=== PATIENT | female | born 1945 | race Caucasian/White ===

== ENCOUNTER → 2018-08-10 09:25 | Outpatient (CLI) | payer MEDICARE, OTHER, SELFPAY ==
[2018-08-10 10:13] LABS: Add Manual Diff / Slide Review NO; Basophils Percent Auto 0.9 % (0-2); Eosinophils Percent Auto 4.5 % (2-4); Hematocrit 37.7 % (36-46); Hemoglobin 12.6 g/dL (12.0-16.0); Lymphocytes Percent Auto 26.4 % (25-40); Mean Corpuscular HGB Conc 33.3 % (30-36); Mean Corpuscular Hemoglobin 29.8 PG (26-34); Mean Corpuscular Volume 89.5 fL (80-100); Monocytes Percent Auto 6.6 % (3-14); Neutrophils Absolute Auto 3800 /uL (3000-5900); Neutrophils Percent Auto 61.6 % (50-75); Platelet Count 206 X10^3/uL (150-400); Red Blood Cell Count 4.21 X10^6/uL (4.0-5.2); Red Cell Distribution Width 13.3 % (11.6-14.8); White Blood Cell Count 6.1 X10^3/uL (4.5-11.0)
[2018-08-10 10:38] LABS: Alanine Aminotransferase 26 IU/L (9-52); Albumin 3.9 g/dL (3.5-5.0); Albumin Globulin Ratio 1.6 (1.0-2.8); Alkaline Phosphatase 73 U/L (38-126); Aspartate Aminotransferase 25 IU/L (14-36); Bilirubin Total 0.6 mg/dL (0.2-1.3); Blood Urea Nitrogen 14 mg/dL (7-17); Calcium 9.2 mg/dL (8.4-10.2); Carbon Dioxide 32 mmol/L (22-32); Chloride 103 mmol/L (98-107); Estimated Glomerular Filt Rate > 60.0 mL/min (>60); Globulin 2.5 g/dL (1.7-4.1); Glucose 100 mg/dL (80-110); HEMOLYSIS < 15 (0-50); Potassium 4.2 mmol/L (3.4-5.1); Sodium 144 mmol/L (137-145); Total Protein 6.4 g/dL (6.3-8.2)
[2018-08-10 10:48] LABS: Hemoglobin A1C% w Est Avg Glu 5.5 % (4.0-6.0)
[2018-08-10 10:56] LABS: Vitamin D 25 Hydroxy (D3) 40.8 ng/mL (30.0-100.0)
== END ==
PROVIDERS: Visit Provider Registered Nurse
DX: Z13.1 Encounter for screening for diabetes mellitus (principal); E78.5 Hyperlipidemia, unspecified; I48.92 Unspecified atrial flutter; M81.0 Age-related osteoporosis without current pathological fracture
CPT/HCPCS: 36415; 80053; 82306; 83036; 85025

== ENCOUNTER → 2018-08-11 08:11 | Outpatient (CLI) | payer MEDICARE, OTHER, SELFPAY ==
[2018-08-11 09:38] LABS: Cholesterol 120 mg/dL (140-199); HDL Cholesterol 62 mg/dL (40-60); LDL Cholesterol Calculated 40 mg/dL (<100); Triglycerides 88 mg/dL (35-150)
== END ==
PROVIDERS: Visit Provider Registered Nurse
DX: E78.5 Hyperlipidemia, unspecified (principal); Z00.00 Encounter for general adult medical examination without abnormal findings
CPT/HCPCS: 36415; 80061

== ENCOUNTER → 2018-08-19 13:20 | Outpatient (CLI) | payer MEDICARE, OTHER, SELFPAY ==
--- NOTE | 2018-08-19 13:21 | DI.RAD.S_ITS ---
This blank DEXA report has been sent in error by the PACS system. The correct and complete report will be forthcoming in 1-2 days. Thank you for your patience and understanding. Dictated by: Anushka Mason MD, PhD on 08/19/2018 at 15:16 Approved by: Anushka Mason MD, PhD on 08/19/2018 at 15:16
== END ==
PROVIDERS: Visit Provider Registered Nurse
DX: M81.0 Age-related osteoporosis without current pathological fracture (principal); Z78.0 Asymptomatic menopausal state
CPT/HCPCS: 77080

== ENCOUNTER → 2018-09-08 11:19 | Outpatient (CLI) | payer MEDICARE, OTHER, SELFPAY ==
--- NOTE | 2018-09-08 | DI.MG.S_ITS ---
BILATERAL DIGITAL SCREENING MAMMOGRAM 3D/2D WITH CAD: 09/08/2018 CLINICAL: Routine screening. Comparison is made to exams dated: 08/11/2017 mammogram, 08/04/2016 mammogram, and 07/27/2015 mammogram - [facility]. The tissue of both breasts is heterogeneously dense. This may lower the sensitivity of mammography. Current study was also evaluated with a Computer Aided Detection (CAD) system. There are mole markers on both breasts. No significant masses, calcifications, or other findings are seen in either breast. There has been no significant interval change. IMPRESSION: NEGATIVE There is no mammographic evidence of malignancy. A 1 year screening mammogram is recommended. This exam was interpreted at Station ID: [id number]. NOTE: For mammograms, a report in lay terms will be sent to the patient. Approximately 15% of breast malignancies will not be visualized mammographically. In the management of a palpable breast mass, a negative mammogram must not discourage biopsy of a clinically suspicious lesion. Electronically Signed By: Bobby higgisn/vee:09/08/2018 22:15:39 letter sent: Normal Exam ACR BI-RADS Category 1: Negative [id number]
== END ==
PROVIDERS: Visit Provider Registered Nurse
DX: Z12.31 Encounter for screening mammogram for malignant neoplasm of breast (principal)
CPT/HCPCS: 77063; 77067

== ENCOUNTER → 2018-09-09 08:36 | Outpatient (CLI) | payer MEDICARE, OTHER, SELFPAY ==
[2018-09-09 10:27] LABS: Alanine Aminotransferase 27 IU/L (9-52); Albumin 4.1 g/dL (3.5-5.0); Albumin Globulin Ratio 1.4 (1.0-2.8); Alkaline Phosphatase 76 U/L (38-126); Aspartate Aminotransferase 27 IU/L (14-36); BUN Creatinine Ratio 21.3 (6-22); Bilirubin Total 0.6 mg/dL (0.2-1.3); Blood Urea Nitrogen 17 mg/dL (7-17); Calcium 9.5 mg/dL (8.4-10.2); Carbon Dioxide 35 mmol/L (22-32); Chloride 98 mmol/L (98-107); Estimated Glomerular Filt Rate > 60.0 mL/min (>60); Globulin 2.9 g/dL (1.7-4.1); Glucose 90 mg/dL (80-110); HEMOLYSIS < 15 (0-50); Potassium 3.3 mmol/L (3.4-5.1); Sodium 141 mmol/L (137-145)
== END ==
PROVIDERS: PCP Registered Nurse; Visit Provider Registered Nurse
DX: I10 Essential (primary) hypertension (principal)
CPT/HCPCS: 36415; 80053

== ENCOUNTER → 2019-05-03 12:41 | Outpatient (CLI) | payer MEDICARE, OTHER, SELFPAY ==
--- NOTE | 2019-05-03 12:42 | DI.RAD.S_ITS ---
PROCEDURE: FL BARIUM SWALLOW W SPEECH INDICATIONS: DYSPHAGIA TECHNIQUE: Examination was conducted in conjunction with speech pathology per standard protocol. In the lateral projection, filming was performed of the patient swallowing. AP projection filming may also be performed with patient swallowing. COMPARISON: None. FINDINGS: Function: The oral preparatory phase appears normal, with proper containment. The subsequent oral propulsive phase, pharyngeal phase, and esophageal phase of swallowing also appear normal with all proffered substances. No laryngotracheal penetration or aspiration. No pathologic vallecular pooling. Morphology: No cricopharyngeal bar is identified. No cervical esophageal webs. No Zenker's diverticulum. No strictures. IMPRESSION: No evidence of tracheal aspiration. Dictated by: Harpreet Dietz M.D. on 05/03/2019 at 14:29 Approved by: Harpreet Dietz M.D. on 05/03/2019 at 14:29
--- NOTE | 2019-05-04 17:22 | ST.SWALLOW ---
Care Team Visit Care Team Role Provider Type Jacobo Day MD Attending Provider Physician Primary Care Provider Specialty: Internal Medicine Address: [address] [place] [address], [id number] Email: Modified Barium Swallow Study CAMPUS ADMINISTRATIVE ASSISTANT Modified Barium Swallow Study Start: 05/04/19 16:42 Freq: Status: Active Protocol: Document 05/03/19 16:42 MICH (Rec: 05/04/19 17:22 MICH [id number]) Modified Barium Swallow Study Total Time Visit Start Time 13:30 Visit Stop Time 14:10 Total Visit Minutes [address] Jacobo Day Reason for Referral Dysphagia Setting Setting Outpatient Care Patient Information Identification Type Name ID Card Patient History 73-yr-old female who stated that over the last ~10 yrs, she has experienced intermittent coughing with oral intake and sensation of her airway closing up at times either with or without oral intake. During these experiences she feels she is unable to breathe. Symptoms typically resolve if she can calm herself. She has never required Heimlich maneuver, nor has she ever passed out from lack of oxygen during such episodes. She attended [facility] swallow screening with Speech Pathology 2 wks ago and was recommended MBSS for swallow evaluation. Subjective Observations The pt arrived on time and provided case history. Patient Positioning Position View Lateral Imaging Lateral View Textures Administered Trials Presented Thin Liquid via Spoon Thin Liquid via Cup [place] Liquid via Spoon [place] Liquid via Cup Honey Liquid via Spoon Dysphagia Blenderized Textures Regular Textures Oral Phase Source: MBSIMP (TM) (C) Bolus Specific Scoring Grid Lip Closure No Impairment (WNL) Tongue Control During Bolus Hold WFL Bolus Prep/Mastication WFL Bolus Transport/Lingual Motion WFL A/P Lingual Propulsion Delay No Oral Residue Minimal Impairment Residue Clearing WFL Nasal Regurgitation No Additional Oral Phase Observations Oral Peripheral Exam: Symmetrical features all WNL of strength, coordination and ROM. Pt has complete natural dentition in good condition and wears full set of braces. Soft palate elevates upon phonation. Upon palpation, hyolaryngeal elevation WNL, mildly reduced anterior excursion. Pt is able to perform volitional swallow and strong cough. Oral Phase: Lingual rocking observed x1 with a/p propulsion of large liquid bolus. Mild oral residue observed that mostly clears with subsequent swallow. Otherwise WNL. Pharyngeal Phase Source: MBSIMP (TM) (C) Bolus Specific Scoring Grid Delayed Initiation of Pharyngeal Swallow No Soft Palate Elevation No Impairment (WNL) Tongue Base Strength/Range of Motion Minimal Impairment Residue Along the Tongue Base Yes Clearance of Residue Along Tongue Base WFL Laryngeal Elevation No Impairment (WNL) Anterior Hyoid Movement Mild Impairment Epiglottic Range of Motion WFL Vallecular Residue Yes Clearance of Vallecular Residue Mild Impairment Laryngeal Vestibular Closure No Impairment (WNL) Pharyngeal Stripping Wave Mild Impairment Posterior Pharyngeal Wall Residue Yes Clearance of Posterior Pharyngeal Wall Minimal Impairment Residue Upper Esophageal Sphincter Opening No Impairment (WNL) Residue in the Pyriform Sinuses Yes Clearance of Residue in the Pyriform Minimal Impairment Sinuses Pharyngoesophageal Backflow Observed No Additional Pharyngeal Phase Observations Proximal esophagus observed only. No backflow or other abnormality observed. A/P View Clinical Impressions Dysphagia Type Mild pharyngeal dysphagia Findings The pt presents with mild impairment of pharyngeal musculature resulting in reduced stripping wave and anterior hyolaryngeal excursion with subsequent mild pharyngeal residue, particularly at level of valeculae. Residue mostly but not entirely clears with subsequent swallows. No penetration or aspiration was observed with all trials. Given findings of study and pt 's descriptions of closing sensation at airway, as well as relief of symptoms with relaxation, suspect the pt is experiencing laryngospasm vs dysphagia. Education was provided regarding MBS results and this suggestion. The pt stated that she had wondered if perhaps she had a spasm. A brief course of outpatient therapy may be helpful for ongoing assessment of swallow, education, investigation of potential triggers of spasm, and training of laryngospasm management, although the pt is already following typical recommendations (i.e., relaxation techniques) to manage symptoms. Rehabilitation Potential Good Patient Appropriate for Therapy Yes Recommendations Diet Liquids Order Thin Diet Order Regular Medication Recommendation As Tolerated Aspiration Precautions Recommended Precautions Upright at 90 Degrees Additional Precautions Use relaxation techniques if sensing abnormal airway closure Treatment Plan Therapy Recommendations Outpatient Speech Therapy Compensatory Strategies Recommendations Sitting Upright (90 deg) Small Bites and Sips Short Term Goals Suggested goals: 1. The pt will perform deep breathing relaxation technique to minimize frequency and duration of laryngospasm. 2. The pt will perform exercises to increase strength /coordination/ROM of pharyngeal and laryngeal musculature to improve swallow function. Mcc Goals 1. The pt will experience reduced frequency and duration of laryngospasm, as measured by pt report and clinical judgement. 2. The pt will tolerate regular diet texture and thin liquids without overt s/sx of aspiration or laryngospasm. Placement Recommendation After Discharge Home Outpatient Therapy
== END ==
PROVIDERS: PCP Student in an Organized Health Care Education/Training Program; Visit Provider Student in an Organized Health Care Education/Training Program
DX: R13.10 Dysphagia, unspecified (principal)
CPT/HCPCS: 74230; 92611

== ENCOUNTER 2019-05-25 12:10 | Emergency (ER) | payer MEDICARE, OTHER, SELFPAY ==
[2019-05-25] VITALS (7 sets, daily range): BP systolic 128–146; BP diastolic 56–71; PULSE 75–91; RESP 13–22; TEMP 36.7; O2SAT 96–99; BMI 28.1
--- NOTE | 2019-05-25 12:18 | DI.RAD.S_ITS ---
PROCEDURE: XR CHEST 1V INDICATIONS: chest pain TECHNIQUE: One view of the chest was acquired. COMPARISON: [facility], , CHEST 1 VIEW, 03/24/2016, 9:36. FINDINGS: Surgical changes and devices: None. Lungs and pleura: Lungs are clear. No pleural effusions or pneumothorax. Mediastinum: Mediastinal contours appear normal. Heart size is normal. Bones and chest wall: No suspicious bony lesions. Overlying soft tissues appear unremarkable. IMPRESSION: No acute process. Dictated by: Darleen Miller M.D. on 05/25/2019 at 12:48 Approved by: Darleen Miller M.D. on 05/25/2019 at 12:48
[2019-05-25 12:33] LABS: Add Manual Diff / Slide Review NO; Basophils Absolute Auto 100 /uL (0-100); Basophils Percent Auto 0.8 % (0-2); Eosinophils Absolute Auto 200 /uL (0-450); Eosinophils Percent Auto 2.4 % (2-4); Hematocrit 39.1 % (36-46); Hemoglobin 13.3 g/dL (12.0-16.0); Lymphocytes Absolute Auto 2000 /uL (1100-4500); Lymphocytes Percent Auto 28.2 % (25-40); Mean Corpuscular Hemoglobin 30.3 PG (26-34); Monocytes Absolute Auto 600 /uL (0-900); Monocytes Percent Auto 8.1 % (3-14); Neutrophils Absolute Auto 4300 /uL (1500-7000); Neutrophils Percent Auto 60.5 % (50-75); Platelet Count 201 X10^3/uL (150-400); Red Cell Distribution Width 13.4 % (11.6-14.8); White Blood Cell Count 7.2 X10^3/uL (4.5-11.0)
[2019-05-25 12:37] LABS: Prothrombin Time 10.9 SECONDS (10.1-12.7)
[2019-05-25 12:39] LABS: PTT Partial Thromboplastin Tim 29 SECONDS (26.4-36.2)
[2019-05-25 12:42] LABS: Alanine Aminotransferase 16 IU/L (9-52); Albumin 4.3 g/dL (3.5-5.0); Albumin Globulin Ratio 1.5 (1.0-2.8); Alkaline Phosphatase 84 U/L (38-126); Aspartate Aminotransferase 24 IU/L (14-36); BUN Creatinine Ratio 15.7 (6-22); Bilirubin Total 0.7 mg/dL (0.2-1.3); Blood Urea Nitrogen 11 mg/dL (7-17); Calcium 9.2 mg/dL (8.4-10.2); Carbon Dioxide 31 mmol/L (22-32); Chloride 101 mmol/L (98-107); Creatine Kinase 95 U/L (30-135); Estimated Glomerular Filt Rate > 60.0 mL/min (>60); Globulin 2.8 g/dL (1.7-4.1); Glucose 123 mg/dL (80-110); HEMOLYSIS < 15 (0-50); Lipase 68 U/L (23-300); Magnesium 1.7 mg/dL (1.6-2.3); Potassium 2.8 mmol/L (3.4-5.1); Sodium 142 mmol/L (137-145); Total Protein 7.1 g/dL (6.3-8.2)
[2019-05-25 12:56] LABS: Troponin I 0.023 ng/mL (0.01-0.034)
[2019-05-25] MEDS: POTASSIUM CHLORIDE 20 MEQ/15 ML UDC 40 MEQ PO (14:00)
--- NOTE | 2019-05-25 14:20 | ED_ITS ---
HPI - Syncope General Chief Complaint: Syncope Stated Complaint: Low bp,almost passed out Time Seen by Provider: 05/25/19 13:21 Source: patient Mode of arrival: ambulatory Limitations: no limitations History of Present Illness HPI narrative: This is a 73-year-old female comes to the emergency department with complaint of near-syncope. Patient states she was doing her normal activities today. She states that it felt like a whole-body curtain was coming down from the had all over her body. She said at the table, she put her head down. She got tunnel vision but did not lose consciousness or tone. Patient states that she checked her blood pressure, she could not feel pulses so she walked in to the other room and the recliner and sat down. She then felt that her heart rate was fast. She denies headache, she denies any other vision changes. The tunnel vision resolved and she has not had any further. She did feel like her eyes were dry this morning. She denies any chest pain, no shortness of breath. No abdominal pain. No nausea, no vomiting no diarrhea. She does feel constipated. She states that she typically urinates every couple hours and has had been on her normal schedule she has been eating and drinking. She does have a cardiac history with atrial flutter. She has had an ablation. As well as catheterization when she had this done. This was several years ago. She has no cardiac stents. She has a known left bundle branch block. She does not take any blood thinners. She does take diltiazem, chlorthalidone as well as atorvastatin and alendronate. No tobacco, no alcohol or illicit. Her primary care is Dr. Day, her superintendent circus is Dr. Phillips Related Data Home Medications Medication Instructions Recorded Confirmed multivitamin 1 tab PO DAILY #0 12/12/11 05/25/19 cholecalciferol (vitamin D3) 1,000 unit PO DAILY #0 tab 07/22/16 05/25/19 [Vitamin D3] Disabled Parking Permit 1 dev MISCELLANEOUS DIRECTED 05/25/19 05/25/19 atorvastatin [Lipitor] 10 mg PO BEDTIME 05/25/19 05/25/19 diltiazem HCl [Cartia XT] 240 mg PO DAILY 05/25/19 05/25/19 Previous Rx's Medication Instructions Recorded alendronate 70 mg tablet 70 mg PO QWEEK #4 tab 04/24/19 chlorthalidone 25 mg tablet 25 mg PO DAILY #30 tab 03/09/19 Allergies Allergy/AdvReac Type Severity Reaction Status Date / Time aspartame [ASPARTAME] Allergy Mild ITCHING Verified 05/25/19 12:17 AND REDNESS saccharin [SACCHARIN] Allergy Mild ITCHING Verified 05/25/19 12:17 AND REDNESS Sulfa (Sulfonamide Allergy Mild ITCHING Verified 05/25/19 12:17 Antibiotics) AND REDNESS [SULFA (SULFONAMIDE ANTIBIOTICS)] lisinopril AdvReac sinus Verified 05/25/19 12:17 problems Review of Systems Review of Systems ROS Unobtainable: All systems reviewed & are unremarkable except as noted in HPI and below Constitutional Denies chills, Denies fever(s), Denies headache(s), Denies lethargy and Denies weakness Eyes Reports tunnel vision (resolved) ENT Ears, Nose, Mouth, and Throat: Denies vertigo, Denies dizziness, Denies headache(s), Denies nasal congestion and Denies disequilibrium Cardiovascular Denies chest pain, Denies diaphoresis, Denies syncope, Denies rapid heart rate, Denies edema, Denies irregular heart rhythm, Reports lightheadedness, Denies palpitations, Denies dyspnea, Denies dyspnea on exertion and Denies orthopnea Respiratory Denies chest congestion, Denies cough, Denies excessive phlegm production, Denies dyspnea and Denies dyspnea on exertion Gastrointestinal Gastrointestinal: Denies abdominal pain, Denies melena, Denies hematochezia, Denies change in bowel habits, Denies diarrhea, Denies nausea and Denies vomiting Genitourinary Denies hematuria, Denies urinary frequency, Denies dysuria, Denies flank pain and Denies urinary urgency Musculoskeletal Denies back pain, Denies numbness and Denies tingling Integumentary/Breasts Denies rash Neurologic Denies confusion, Denies vertigo, Denies dizziness, Denies syncope, Denies headache(s), Denies focal weakness, Denies numbness, Denies tingling, Denies disequilibrium and Denies weakness Psychiatric Denies confusion Endocrine Denies palpitations [facility] Medical History Atrial flutter (Chronic 03/2016) Depression (Chronic) Dyslexia (Chronic 194) Foot pain (Chronic 2004) Osteoarthritis (Chronic) Osteopenia (Chronic) Osteoporosis (Chronic 2012) PTSD (post-traumatic stress disorder) (Chronic) Vertigo (Chronic) Chicken pox (Resolved ~1949) Fibroids (Resolved ~1979) Frozen shoulder (Resolved 1978) Hayfever (Resolved ~1959) History of heavy periods (Resolved ~1979) Infertility (Resolved 1977) Measles (Resolved ~1949) Mumps (Resolved ~1949) Painful menstrual periods (Resolved ~1958) Recurrent sinusitis (Resolved ~1969) Vulvar intraepithelial neoplasia (ERIC) (Resolved 2007) Surgical History Anesthesia (Resolved) History of cardiac radiofrequency ablation (RFA) (Resolved 2015) History of gynecologic surgery (Resolved ~1979) History of shoulder surgery (Resolved 1978) History of sinus surgery (Resolved ~1979) Status post cholecystectomy (Resolved 1993) Status post hysterectomy (Resolved 1988) Status post surgical removal of neoplasm of skin (Resolved 2007) Family History Father Heart disease Hypolipidemia Grandfather Stroke Grandmother Heart disease Mother Heart block Heart disease Grandfather Cancer Grandmother Stroke Sister Age: 67 Uterine cancer Sister No problems noted. Sister No problems noted. Social History (System 09/08/18 @ 16:12 by Swapnil Del Cid) Smoking Status: Never smoker Family History Father Heart disease Hypolipidemia Grandfather Stroke Grandmother Heart disease Mother Heart block Heart disease Grandfather Cancer Grandmother Stroke Sister Age: 67 Uterine cancer Sister No problems noted. Sister No problems noted. Social History Smoking Status: Never smoker Exam Narrative Exam Narrative: GEN: well nourished, well appearing female, alert and oriented x 3, patient appears to be in no acute distress. HEENT: Atraumatic, pupils are equal round reactive to light, extraocular movements are intact, nares are clear, moist mucous membranes. HEART: Regular rate and rhythm without murmur, clicks, rubs. LUNGS:Lungs clear to auscultation, no wheezes, rales, crackles, chest moves symmetrically ABD:bowel sounds normal, soft, non-tender, no guarding, rebound, rigidity, no masses noted, no hepatosplenomegaly :No CVA tenderness MSCL: Non-tender, no muscle atrophy, muscles strength 5/5 upper and lower extremities, full range of motion, normal gait NEURO:CN 2-12 intact, sensation normal SKIN: No rashes. No petechiae. Initial Vital Signs Initial Vital Signs: Vital Signs Temperature 98.1 F 05/25/19 12:13 Pulse Rate 88 05/25/19 12:13 Respiratory Rate 18 05/25/19 12:13 Blood Pressure 139/71 05/25/19 12:13 Pulse Oximetry 99 05/25/19 12:13 Scores GCS [place] coma scale eye opening: Spontaneous Aric coma scale verbal response: Orientated Aric coma scale motor response: Obey commands [place] coma scale total score: 15 Course Orders Ordered: ED Orders 05/25/19 12:18 XR chest 1V Stat EKG-12 Lead Stat 05/25/19 12:25 Complete Blood Count AUTO DIFF Stat Comprehensive Metabolic Panel Stat Lipase Stat Magnesium Stat Partial Thromboplastin Time Stat Prothrombin Time INR Stat Troponin & CK Cardiac Panel Stat Discontinued Medications Potassium Chloride (Potassium Chloride) 40 meq PO NOW ONE Stop: 05/25/19 13:49 Last Admin: 05/25/19 14:00 Dose: 40 meq Vital Signs - 8 hr 05/25/19 12:13 05/25/19 12:45 05/25/19 12:51 Temperature 98.1 F Pulse Rate 88 78 Pulse Rate [Orthostatic Lying] 85 Pulse Rate [Orthostatic Sitting] 86 Pulse Rate [Orthostatic Standing] 91 H Respiratory Rate 18 22 Blood Pressure 139/71 Blood Pressure [Left Arm] 138/70 Blood Pressure [Orthostatic Lying] 145/64 H Blood Pressure [Orthostatic Sitting] 146/60 H Blood Pressure [Orthostatic Standing] 138/70 Pulse Oximetry 99 96 05/25/19 13:30 05/25/19 14:00 05/25/19 14:30 Temperature Pulse Rate 76 79 75 Pulse Rate [Orthostatic Lying] Pulse Rate [Orthostatic Sitting] Pulse Rate [Orthostatic Standing] Respiratory Rate 19 20 18 Blood Pressure Blood Pressure [Left Arm] 143/62 H 138/71 146/61 H Blood Pressure [Orthostatic Lying] Blood Pressure [Orthostatic Sitting] Blood Pressure [Orthostatic Standing] Pulse Oximetry 96 98 98 05/25/19 15:12 Temperature Pulse Rate 79 Pulse Rate [Orthostatic Lying] Pulse Rate [Orthostatic Sitting] Pulse Rate [Orthostatic Standing] Respiratory Rate 13 Blood Pressure Blood Pressure [Left Arm] 128/56 L Blood Pressure [Orthostatic Lying] Blood Pressure [Orthostatic Sitting] Blood Pressure [Orthostatic Standing] Pulse Oximetry 97 MDM - Syncope Lab Data Attestation: I reviewed the patient's lab results. Result diagrams: 05/25/19 12:25 05/25/19 12:25 Lab Results 05/25/19 05/25/19 05/25/19 Range/Units 12:25 12:25 12:25 WBC 7.2 (4.5-11.0) X10^3/uL RBC 4.40 (4.0-5.2) X10^6/uL Hgb 13.3 (12.0-16.0) g/dL Hct 39.1 (36-46) % MCV 89.0 (80-100) fL MCH 30.3 (26-34) PG MCHC 34.0 (30-36) % RDW 13.4 (11.6-14.8) % Plt Count 201 (150-400) X10^3/uL Neut % (Auto) 60.5 (50-75) % Lymph % (Auto) 28.2 (25-40) % Craig % (Auto) 8.1 (3-14) % Eos % (Auto) 2.4 (2-4) % Baso % (Auto) 0.8 (0-2) % Neut # (Auto) 4300 (3293-8037) /uL Lymph # (Auto) 2000 (4616-1391) /uL Craig # (Auto) 600 (0-900) /uL Eos # (Auto) 200 (0-450) /uL Baso # (Auto) 100 (0-100) /uL PT 10.9 (10.1-12.7) SECONDS INR 1.0 (0.9-1.3) APTT 29 (26.4-36.2) SECONDS Sodium 142 (137-145) mmol/L Potassium 2.8 L (3.4-5.1) mmol/L Chloride 101 (98-107) mmol/L Carbon Dioxide 31 (22-32) mmol/L BUN 11 (7-17) mg/dL Creatinine 0.70 (0.52-1.04) mg/dL Estimated GFR > 60.0 (>60) mL/min BUN/Creatinine Ratio 15.7 (6-22) Glucose 123 H (80-110) mg/dL Calcium 9.2 (8.4-10.2) mg/dL Magnesium 1.7 (1.6-2.3) mg/dL Total Bilirubin 0.7 (0.2-1.3) mg/dL AST 24 (14-36) IU/L ALT 16 (9-52) IU/L Alkaline Phosphatase 84 (38-126) U/L Total Creatine Kinase 95 (30-135) U/L CK-MB (CK-2) TNP CK-MB (CK-2) Rel Index TNP Troponin I 0.023 (0.01-0.034) ng/mL Total Protein 7.1 (6.3-8.2) g/dL Albumin 4.3 (3.5-5.0) g/dL Globulin 2.8 (1.7-4.1) g/dL Albumin/Globulin Ratio 1.5 (1.0-2.8) Lipase 68 (23-300) U/L Urine Dip Bedside Urine Glucose Negative Bedside Urine Bilirubin - Negative Bedside Urine Ketone - Negative Urine Specific [place] 1.010 Bedside Urine Occult Blood - Negative Bedside Urine pH 7.0 Bedside Urine Protein - Negative Bedside Urine Urobilinogen - Negative Bedside Urine Nitrite - Negative Bedside Urine Leukocytes + 70 Esterase Imaging Data Chest x-ray: Radiologist's impression: [address] [address] XRay Report Signed Patient: Fariha Beatty JMR#: [id number] : 6Acct:[id number] Age/Sex: 73 / FDate of Service: 05/25/19 Loc: ED Accession Number: [id number] Procedure: XR chest 1V Ordering Provider: Zari Iqbal D.O. PROCEDURE: XR CHEST 1V INDICATIONS: chest pain TECHNIQUE: One view of the chest was acquired. COMPARISON: [facility], CHEST 1 VIEW, 03/24/2016, 9:36. FINDINGS: Surgical changes and devices: None. Lungs and pleura: Lungs are clear. No pleural effusions or pneumothorax. Mediastinum: Mediastinal contours appear normal. Heart size is normal. Bones and chest wall: No suspicious bony lesions. Overlying soft tissues appear unremarkable. IMPRESSION: No acute process. Dictated by: Darleen Miller M.D. on 05/25/2019 at 12:48 Approved by: Darleen Miller M.D. on 05/25/2019 at 12:48 ECG Data Attestation: I personally reviewed and interpreted this ECG as follows: Prior ECG tracings: available for review Interpretation: Sinus rhythm occasional PVC, left bundle branch block. Rate 85 P are 165 QRS sick 169 and QTC of 477. No acute ST changes. Patient EKG appears similar to . [facility] Narrative Medical decision making narrative: Patient is a movement did not have a true syncopal episode. She did have what sounds like a near syncopal episode. No acute cardiac changes on EKG, troponin is normal at with a normal chest x-ray. Patient does appear to be hypokalemic. She states she has a banana regularly. She did used to take potassium daily but they changed her medications. She was given a dose of oral potassium here she was asked to have her potassium rechecked tomorrow either here in the ER or as outpatient and was given a lab slip. The patient I discussed she had a couple extra bananas at. If she has any recurrent or worsening symptoms she should return. She is feeling much better at this time. Patient is on chlorthalidone which could cause her hypokalemia. We discussed if she has recurrent symptoms she may need to be on potassium regularly. Discharge Plan Departure Patient Disposition: Home Clinical Impression: Acute hypokalemia, Near syncope Discharge Date/Time: 05/25/19 15:44 Interventions: ED Discharge Assessment Last Done: 05/25/19 15:44 Instructions: DI for Hypokalemia Activity Restrictions/Additional Instructions: Follow-up tomorrow for repeat electrolytes to recheck your potassium. Continue your medication as prescribed. If your potassium continues to be low you may need a potassium supplement. Urine culture is pending, this will return in 24-48 hours if positive you should expect a phone. Return to the emergency department if you are unable to get your potassium level rechecked or having any new or worsening symptoms, weakness, recurrent syncope, lightheadedness, chest pain, shortness of breath, persistent vomiting black or bloody stools or other new or concerning symptoms. Prescriptions: No Action multivitamin Tablet 1 tab PO DAILY Qty: 0 RF: 0 cholecalciferol (vitamin D3) [Vitamin D3] 1,000 UNIT tablet 1,000 unit PO DAILY Qty: 0 RF: 0 alendronate 70 mg tablet 70 mg PO QWEEK Qty: 4 RF: 5 chlorthalidone 25 mg tablet 25 mg PO DAILY Qty: 30 RF: 5 diltiazem HCl [Cartia XT] 240 mg capsule,extended release 24hr 240 mg PO DAILY RF: 0 atorvastatin [Lipitor] 10 mg tablet 10 mg PO BEDTIME RF: 0 Disabled Parking Permit 1 dev miscellaneous DIRECTED RF: 0 Referrals: Jacobo Day MD [Primary Care Provider] -
== END 2019-05-25 15:44 | disposition home or self-care (01) ==
PROVIDERS: Emergency Provider Emergency Medicine; PCP Student in an Organized Health Care Education/Training Program
DX: E87.6 Hypokalemia (principal); R55 Syncope and collapse; I95.89 Other hypotension
CPT/HCPCS: 36591; 71045; 80053; 81003; 82550; 83690; 83735; 84484; 85025; 85610; 85730; 93005; 99283; 99285

== ENCOUNTER → 2019-05-26 09:06 | Outpatient (CLI) | payer MEDICARE, OTHER, SELFPAY ==
[2019-05-26 09:46] LABS: BUN Creatinine Ratio 15.7 (6-22); Blood Urea Nitrogen 11 mg/dL (7-17); Calcium 9.2 mg/dL (8.4-10.2); Carbon Dioxide 32 mmol/L (22-32); Chloride 100 mmol/L (98-107); Estimated Glomerular Filt Rate > 60.0 mL/min (>60); Glucose 99 mg/dL (80-110); HEMOLYSIS < 15 (0-50); Potassium 3.3 mmol/L (3.4-5.1); Sodium 141 mmol/L (137-145)
== END ==
PROVIDERS: Family Provider Student in an Organized Health Care Education/Training Program; PCP Student in an Organized Health Care Education/Training Program; Visit Provider Emergency Medicine
DX: I95.9 Hypotension, unspecified (principal)
CPT/HCPCS: 36415; 80048

== ENCOUNTER 2019-06-27 13:27 | Emergency (ER) | payer MEDICARE, OTHER, SELFPAY ==
[2019-06-27] VITALS (10 sets, daily range): BP systolic 106–142; BP diastolic 44–74; PULSE 31–41; RESP 13–20; TEMP 36.4; O2SAT 97–99
--- NOTE | 2019-06-27 13:37 | DI.RAD.S_ITS ---
PROCEDURE: XR CHEST 1V INDICATIONS: bradycardia / dizzyness TECHNIQUE: One view of the chest was acquired. COMPARISON: [facility], CR, XR CHEST 1V, 05/25/2019, 12:23. FINDINGS: Surgical changes and devices: None. Lungs and pleura: Lungs are clear. No pleural effusions or pneumothorax. Mediastinum: Mediastinal contours appear normal. Heart size is normal. Bones and chest wall: No suspicious bony lesions. Overlying soft tissues appear unremarkable. IMPRESSION: No evidence acute pulmonary process. Dictated by: Felice Nuñez M.D. on 06/27/2019 at 14:15 Approved by: Felice Nuñez M.D. on 06/27/2019 at 14:16
[2019-06-27 14:00] LABS: Add Manual Diff / Slide Review NO; Basophils Absolute Auto 100 /uL (0-100); Basophils Percent Auto 0.8 % (0-2); Eosinophils Absolute Auto 200 /uL (0-450); Eosinophils Percent Auto 2.6 % (2-4); Hematocrit 38.6 % (36-46); Lymphocytes Absolute Auto 2400 /uL (1100-4500); Lymphocytes Percent Auto 28.3 % (25-40); Mean Corpuscular HGB Conc 33.6 % (30-36); Mean Corpuscular Volume 89.2 fL (80-100); Monocytes Absolute Auto 700 /uL (0-900); Neutrophils Absolute Auto 5100 /uL (1500-7000); Neutrophils Percent Auto 60.3 % (50-75); Platelet Count 214 X10^3/uL (150-400); Red Blood Cell Count 4.33 X10^6/uL (4.0-5.2); Red Cell Distribution Width 13.5 % (11.6-14.8); White Blood Cell Count 8.5 X10^3/uL (4.5-11.0)
--- NOTE | 2019-06-27 14:05 | ED_ITS ---
HPI - Dizziness General Chief Complaint: Dizziness Stated Complaint: persistant dizziness Time Seen by Provider: 06/27/19 13:37 Source: patient Mode of arrival: ambulatory Limitations: no limitations History of Present Illness HPI Narrative: Patient comes emergency department complaining of dizziness today. She states that she felt lightheaded this morning after having an episode of racing heart. Patient has a history of paroxysmal atrial fibrillation. Patient states that the palpitations ceased fairly quickly, but that she has had a sense of dizziness/lightheadedness ever since. Patient denies chest pain. She states she feels slightly short of breath especially when walking. She states her heart rate is normally in the 80s, but she has had occasional episodes of bradycardia in the past, she states, mainly when her potassium has dropped low. Patient states that she has been followed by Dr. Phillips for her atrial fibrillation. Patient denies any nausea or vomiting. Patient denies any recent medication dose changes. She is on diltiazem for her atrial fibrillation. Patient denies taking any beta blockers. No syncopal episodes, and patient states she has not felt near syncopal. No other com plaints at this time. Related Data Home Medications Medication Instructions Recorded Confirmed multivitamin 1 tab PO DAILY #0 12/12/11 06/27/19 Disabled Parking Permit 1 dev MISCELLANEOUS DIRECTED 05/25/19 06/27/19 atorvastatin [Lipitor] 10 mg PO BEDTIME 05/25/19 06/27/19 diltiazem HCl [Cartia XT] 240 mg PO DAILY 05/25/19 06/27/19 Previous Rx's Medication Instructions Recorded alendronate 70 mg tablet 70 mg PO QWEEK #4 tab 03/09/19 chlorthalidone 25 mg tablet 25 mg PO DAILY #30 tab 03/09/19 potassium chloride ER 20 mEq 20 meq PO DAILY #90 tab 05/27/19 tablet,extended release Allergies Allergy/AdvReac Type Severity Reaction Status Date / Time aspartame [ASPARTAME] Allergy Mild ITCHING Verified 06/27/19 13:39 AND REDNESS saccharin [SACCHARIN] Allergy Mild ITCHING Verified 06/27/19 13:39 AND REDNESS Sulfa (Sulfonamide Allergy Mild ITCHING Verified 06/27/19 13:39 Antibiotics) AND REDNESS [SULFA (SULFONAMIDE ANTIBIOTICS)] lisinopril AdvReac sinus Verified 06/27/19 13:39 problems Review of Systems Constitutional Denies chills, Denies fever(s), Denies lethargy and Denies weakness Eyes Denies change in vision, Denies eye discharge, Denies irritation and Denies loss of vision ENT Ears, Nose, Mouth, and Throat: Denies change in voice, Reports dizziness, Denies neck pain and Denies sore throat Cardiovascular Denies chest pain, Denies irregular heart rhythm, Reports lightheadedness, Denies palpitations, Denies dyspnea, Denies dyspnea on exertion and Denies orthopnea Respiratory Denies cough, Denies dyspnea, Denies dyspnea on exertion and Denies wheezing Gastrointestinal Gastrointestinal: Denies abdominal pain, Denies change in bowel habits, Denies diarrhea, Denies nausea and Denies vomiting Genitourinary Denies hematuria, Denies flank pain, Denies urinary incontinence and Denies urinary urgency Musculoskeletal Denies neck pain Integumentary/Breasts Denies pruritus, Denies erythema, Denies rash and Denies wounds Neurologic Denies confusion, Reports dizziness, Denies loss of vision and Denies weakness Psychiatric Denies anxiety, Denies confusion, Denies depression, Denies homicidal ideation and Denies suicidal ideation Endocrine Denies palpitations Hematologic/Lymphatic Denies easy bruising Allergic/Immunologic Denies wheezing [facility] Medical History Atrial flutter (Chronic 03/2016) Depression (Chronic) Dyslexia (Chronic 1945) Foot pain (Chronic 2004) Osteoarthritis (Chronic) Osteopenia (Chronic) Osteoporosis (Chronic 2012) PTSD (post-traumatic stress disorder) (Chronic) Vertigo (Chronic) Chicken pox (Resolved ~1949) Fibroids (Resolved ~1979) Frozen shoulder (Resolved 1978) Hayfever (Resolved ~1959) History of heavy periods (Resolved ~1979) Infertility (Resolved 1977) Measles (Resolved ~1949) Mumps (Resolved ~1949) Painful menstrual periods (Resolved ~1958) Recurrent sinusitis (Resolved ~1969) Vulvar intraepithelial neoplasia (ERIC) (Resolved 2007) Surgical History Anesthesia (Resolved) History of cardiac radiofrequency ablation (RFA) (Resolved 2015) History of gynecologic surgery (Resolved ~1979) History of shoulder surgery (Resolved 1978) History of sinus surgery (Resolved ~1979) Status post cholecystectomy (Resolved 1993) Status post hysterectomy (Resolved 1988) Status post surgical removal of neoplasm of skin (Resolved 2007) Family History Father Heart disease Hypolipidemia Grandfather Stroke Grandmother Heart disease Mother Heart block Heart disease Grandfather Cancer Grandmother Stroke Sister Age: 67 Uterine cancer Sister No problems noted. Sister No problems noted. Social History Smoking Status: Never smoker Family History Father Heart disease Hypolipidemia Grandfather Stroke Grandmother Heart disease Mother Heart block Heart disease Grandfather Cancer Grandmother Stroke Sister Age: 67 Uterine cancer Sister No problems noted. Sister No problems noted. Social History Smoking Status: Never smoker Exam Initial Vital Signs Initial Vital Signs: Vital Signs Temperature 97.6 F 06/27/19 13:33 Pulse Rate 36 L 06/27/19 13:33 Respiratory Rate 18 06/27/19 13:33 Blood Pressure 142/68 H 06/27/19 13:33 Pulse Oximetry 98 06/27/19 13:33 Const General: cooperative and well developed Nutritional Appearance: well nourished Orientation: alert, awake, oriented x3 and not confused HENSC Head: normocephalic and atraumatic Ears: external ears normal and TM's normal bilaterally Nose: external nose normal and No nasal discharge Face and sinus: sinuses nontender, face symmetric, no sinus tenderness and No dry mucous membranes Mouth: oral mucosae normal and moist mucous membranes Teeth and gingiva: dentition normal Throat: tonsils normal and uvula midline Eyes General: appearance normal, both eyes and all related structures Eyelids: eyelids normal Conjunctivae: conjunctivae normal Sclera: sclerae normal Pupils: PERRL EOM: EOM intact bilaterally Neck Neck: normal visual inspection, trachea midline, No lymphadenopathy, No midline deformity and No JVD Lymphatic: No lymphedema Chest Chest: normal inspection of the chest Resp Effort & Inspection: normal respiratory effort, able to speak in complete sentences, no respiratory distress and no use of accessory muscles Auscultation: clear to auscultation bilaterally, no rales, no rhonchi and no wheezes Cardio Rate: bradycardic Rhythm: regular rhythm and abnormal rhythm irregularly irregular Heart Sounds: no click, no gallops, no murmurs and no rubs Pulses: normal peripheral pulses GI Inspection: non-distended Palpation: soft, no hepatosplenomegaly, No guarding, No pulsatile mass and No tender Auscultation: normal bowel sounds Back/Spine/Pelvis Back: No CVA tenderness Cervical Spine: cervical ROM normal and No pain with cervical ROM Thoracic/Lumbar Spine: thoracic and lumbar spine normal to inspection Skin General: no rashes or lesions noted, No jaundice and No petechiae Neuro General: alert, oriented x3, gait normal and no focal motor deficits Speech: speech normal Extrem General: full ROM, no clubbing, cyanosis or edema, no pedal edema and no calf tenderness Psych Appearance: well kempt Mental Status: mental status grossly normal Attitude: cooperative Thought Content: normal and suicidality Judgment: judgment good Course Course Narrative: Twelve lead EKG was performed, and the patient placed on the cardiac cath rn. Upon realizing the monitor reading, I did find that the P- waves did not seem to be associating with the QRS complexes, and I was concerned for 3rd degree AV block. Pacer pads were placed on the patient, and she was moved to a critical room. Rhythm strip was obtained, which did appear to be consistent with 3rd degree AV block. As such, I did page Cardiology in [facility] to discuss the case and Dr. Mehran Duke agree that the patient should be transferred to [facility] for observation and further evaluation. I discussed the case with Dr. Howard, who is on-call for hospitalist service, and she agreed to accept the patient transfer to [facility]. Discussed the plan with the patient, who is also agreeable. The patient remained normotensive throughout her stay in the emergency department. Her heart rate ranged between the upper 20s and upper 30s, with a brief period in the 40s to 50s. Patient's rhythm strips intermittently showed what appeared to be a Mobitz 2 block and a third-degree block. Patient's course was otherwise uneventful in the emergency department. Her labs were unremarkable. Patient was without incident for the remainder of her ED stay until transfer. Orders Ordered: ED Orders 06/27/19 13:37 XR chest 1V Stat EKG-12 Lead Routine 06/27/19 13:53 Complete Blood Count AUTO DIFF Stat Comprehensive Metabolic Panel Stat Prothrombin Time INR Stat Troponin & CK Cardiac Panel Stat 06/27/19 16:55 Urine Culture Stat Urine Microscopic Stat Vital Signs - 8 hr 06/27/19 13:33 06/27/19 14:09 06/27/19 14:32 Temperature 97.6 F Pulse Rate 36 L 40 L 38 L Respiratory Rate 18 18 13 Blood Pressure 142/68 H Blood Pressure [Right Arm] 106/47 L 118/44 L Pulse Oximetry 98 98 98 06/27/19 15:00 06/27/19 15:30 06/27/19 16:00 Temperature Pulse Rate 38 L 41 L 40 L Respiratory Rate 18 20 15 Blood Pressure Blood Pressure [Right Arm] 114/74 132/57 L 128/62 Pulse Oximetry 97 97 99 06/27/19 16:30 06/27/19 17:00 06/27/19 17:30 Temperature Pulse Rate 31 L 34 L 35 L Respiratory Rate 15 15 14 Blood Pressure Blood Pressure [Right Arm] 127/53 L 142/65 H 113/58 L Pulse Oximetry 99 99 98 06/27/19 18:02 Temperature Pulse Rate 31 L Respiratory Rate 16 Blood Pressure Blood Pressure [Right Arm] 127/48 L Pulse Oximetry 98 MDM - Dizziness Medical Records Attestation: I reviewed the patient's medical records. Lab Data Attestation: I reviewed the patient's lab results. Result diagrams: 06/27/19 13:53 06/27/19 13:53 Lab Results 06/27/19 06/27/19 06/27/19 Range/Units 13:53 13:53 13:53 WBC 8.5 (4.5-11.0) X10^3/uL RBC 4.33 (4.0-5.2) X10^6/uL Hgb 13.0 (12.0-16.0) g/dL Hct 38.6 (36-46) % MCV 89.2 (80-100) fL MCH 30.0 (26-34) PG MCHC 33.6 (30-36) % RDW 13.5 (11.6-14.8) % Plt Count 214 (150-400) X10^3/uL Neut % (Auto) 60.3 (50-75) % Lymph % (Auto) 28.3 (25-40) % Childress % (Auto) 8.0 (3-14) % Eos % (Auto) 2.6 (2-4) % Baso % (Auto) 0.8 (0-2) % Neut # (Auto) 5100 (4275-4322) /uL Lymph # (Auto) 2400 (7153-2254) /uL Childress # (Auto) 700 (0-900) /uL Eos # (Auto) 200 (0-450) /uL Baso # (Auto) 100 (0-100) /uL PT 11.0 (10.1-12.7) SECONDS INR 1.0 (0.9-1.3) Sodium 140 (137-145) mmol/L Potassium 3.4 (3.4-5.1) mmol/L Chloride 102 (98-107) mmol/L Carbon Dioxide 26 (22-32) mmol/L BUN 19 H (7-17) mg/dL Creatinine 0.80 (0.52-1.04) mg/dL Estimated GFR > 60.0 (>60) mL/min BUN/Creatinine Ratio 23.8 H (6-22) Glucose 125 H (80-110) mg/dL Calcium 9.4 (8.4-10.2) mg/dL Total Bilirubin 0.6 (0.2-1.3) mg/dL AST 24 (14-36) IU/L ALT 20 (9-52) IU/L Alkaline Phosphatase 78 (38-126) U/L Total Creatine Kinase (30-135) U/L CK-MB (CK-2) CK-MB (CK-2) Rel Index Troponin I (0.01-0.034) ng/mL Total Protein 7.0 (6.3-8.2) g/dL Albumin 4.2 (3.5-5.0) g/dL Globulin 2.8 (1.7-4.1) g/dL Albumin/Globulin Ratio 1.5 (1.0-2.8) Urine RBC (0-5/HPF) Urine WBC (0-5/HPF) Ur Squamous Epith Cells (0-5/HPF) Urine Bacteria (None) Ur Culture Indicated? 06/27/19 06/27/19 Range/Units 13:53 16:55 WBC (4.5-11.0) X10^3/uL RBC (4.0-5.2) X10^6/uL Hgb (12.0-16.0) g/dL Hct (36-46) % MCV (80-100) fL MCH (26-34) PG MCHC (30-36) % RDW (11.6-14.8) % Plt Count (150-400) X10^3/uL Neut % (Auto) (50-75) % Lymph % (Auto) (25-40) % Childress % (Auto) (3-14) % Eos % (Auto) (2-4) % Baso % (Auto) (0-2) % Neut # (Auto) (3636-5133) /uL Lymph # (Auto) (3341-4537) /uL Childress # (Auto) (0-900) /uL Eos # (Auto) (0-450) /uL Baso # (Auto) (0-100) /uL PT (10.1-12.7) SECONDS INR (0.9-1.3) Sodium (137-145) mmol/L Potassium (3.4-5.1) mmol/L Chloride (98-107) mmol/L Carbon Dioxide (22-32) mmol/L BUN (7-17) mg/dL Creatinine (0.52-1.04) mg/dL Estimated GFR (>60) mL/min BUN/Creatinine Ratio (6-22) Glucose (80-110) mg/dL Calcium (8.4-10.2) mg/dL Total Bilirubin (0.2-1.3) mg/dL AST (14-36) IU/L ALT (9-52) IU/L Alkaline Phosphatase (38-126) U/L Total Creatine Kinase 72 (30-135) U/L CK-MB (CK-2) TNP CK-MB (CK-2) Rel Index TNP Troponin I 0.020 (0.01-0.034) ng/mL Total Protein (6.3-8.2) g/dL Albumin (3.5-5.0) g/dL Globulin (1.7-4.1) g/dL Albumin/Globulin Ratio (1.0-2.8) Urine RBC None seen (0-5/HPF) Urine WBC 1-5/hpf (0-5/HPF) Ur Squamous Epith Cells None seen (0-5/HPF) Urine Bacteria None seen (None) Ur Culture Indicated? Specimen cultured Urine Dip Bedside Urine Glucose Negative Bedside Urine Bilirubin - Negative Bedside Urine Ketone - Negative Bedside Urine Occult Blood - Negative Bedside Urine Protein - Negative Bedside Urine Urobilinogen - Negative Bedside Urine Nitrite - Negative Bedside Urine Leukocytes +++ 500 Esterase Imaging Data Chest x-ray: Attestation: I personally reviewed and interpreted this imaging study as follows: Radiologist's impression: PROCEDURE: XR CHEST 1V INDICATIONS: bradycardia / dizzyness TECHNIQUE: One view of the chest was acquired. COMPARISON: [facility], , XR CHEST 1V, 05/25/2019, 12:23. FINDINGS: Surgical changes and devices: None. Lungs and pleura: Lungs are clear. No pleural effusions or pneumothorax. Mediastinum: Mediastinal contours appear normal. Heart size is normal. Bones and chest wall: No suspicious bony lesions. Overlying soft tissues appear unremarkable. IMPRESSION: No evidence acute pulmonary process. Dictated by: Felice Nuñez M.D. on 06/27/2019 at 14:15 Approved by: Felice Nuñez M.D. on 06/27/2019 at 14:16 ECG Data Attestation: I personally reviewed and interpreted this ECG as follows: (See below) Interpretation: Twelve lead EKG performed June 27, 2019, at 1:37 p.m., as follows: A mildly irregular ventricular rhythm with a rate of 38 beats per minute P waves present without consistent correlation with QRS complexes with a 2-1 ratio QRS duration 150 millisecond QTC interval [address] T wave changes Normal axis Interpretation: Second-degree heart block, type 2, with 2-1 correlation; left bundle-branch block; no signs of acute ischemia; abnormal EKG as interpreted by ED MD. Critical Care Time Critical Care Time: Yes Total Critical Care Time: 60 Attestation: Critical care time was necessary, due to high probability of imminent decline and , due to advanced heart block and AV dissociation. Critical care time is exclusive of separately billable procedures. Critical care time included: Interviewing and examining the patient, ordering and reviewing laboratory studies, ordering and reviewing imaging studies, ordering and evaluating cardiac tracings, evaluating cardiac output, evaluating oxygen saturation, discussion with consultants, discussion with family, re-examining the patient, arranging transfer and documentation. Discharge Plan Departure Patient Disposition: [facility] Clinical Impression: Heart block AV third degree, Symptomatic bradycardia Discharge Date/Time: 06/27/19 18:39 Interventions: ED Discharge Assessment Last Done: 06/27/19 18:39 Prescriptions: No Action multivitamin Tablet 1 tab PO DAILY Qty: 0 RF: 0 alendronate 70 mg tablet 70 mg PO QWEEK Qty: 4 RF: 5 chlorthalidone 25 mg tablet 25 mg PO DAILY Qty: 30 RF: 5 potassium chloride 20 mEq tablet extended release 20 meq PO DAILY Qty: 90 RF: 1 diltiazem HCl [Cartia XT] 240 mg capsule,extended release 24hr 240 mg PO DAILY RF: 0 atorvastatin [Lipitor] 10 mg tablet 10 mg PO BEDTIME RF: 0 Disabled Parking Permit 1 dev miscellaneous DIRECTED RF: 0 Referrals: Jacobo Day MD [Primary Care Provider] -
[2019-06-27 14:13] LABS: Creatine Kinase 72 U/L (30-135)
[2019-06-27 14:15] LABS: Alanine Aminotransferase 20 IU/L (9-52); Albumin 4.2 g/dL (3.5-5.0); Albumin Globulin Ratio 1.5 (1.0-2.8); Alkaline Phosphatase 78 U/L (38-126); Aspartate Aminotransferase 24 IU/L (14-36); BUN Creatinine Ratio 23.8 (6-22); Bilirubin Total 0.6 mg/dL (0.2-1.3); Blood Urea Nitrogen 19 mg/dL (7-17); Calcium 9.4 mg/dL (8.4-10.2); Carbon Dioxide 26 mmol/L (22-32); Chloride 102 mmol/L (98-107); Estimated Glomerular Filt Rate > 60.0 mL/min (>60); Globulin 2.8 g/dL (1.7-4.1); Glucose 125 mg/dL (80-110); HEMOLYSIS 16 (0-50); Potassium 3.4 mmol/L (3.4-5.1); Sodium 140 mmol/L (137-145)
--- NOTE | 2019-06-27 14:19 | PC.NURSE ---
Pt notes that if she brings her head forward, chin to her chest sx's get a little better and conversely if she tips her head back dizziness gets worse. She also said her heartrate is usually in the 80's. She denies any pain and is alert, oriented and able to get her needs met.
--- NOTE | 2019-06-27 14:33 | PC.NURSE ---
Pt alert, denies sx's, Dr. Covarrubias aware of heart rate at 28. not sustained for longer than a few seconds. Pt is hooked up to pacer pads if we need it.
[2019-06-27 17:00] LABS: Bacteria Urine None Seen; RBC Urine None Seen (0-5/HPF)
[2019-06-27 17:18] LABS: Culture Indicated Urine Specimen Cultured; Squamous Epithelial Cell Urine None Seen (0-5/HPF); WBC Urine 1-5/HPF (0-5/HPF)
--- NOTE | 2019-06-27 18:40 | PC.NURSE ---
Report given to aj Puentes RN for transport and then to Yuly at [facility] in the Progressive Care Unit.
== END 2019-06-27 18:39 | disposition short-term general hospital (02) ==
PROVIDERS: Emergency Provider Emergency Medicine; Family Provider Student in an Organized Health Care Education/Training Program; PCP Student in an Organized Health Care Education/Training Program
DX: I44.2 Atrioventricular block, complete (principal); R00.1 Bradycardia, unspecified
CPT/HCPCS: 36591; 71045; 80053; 81003; 81015; 82550; 84484; 85025; 85610; 87086; 93005; 93010; 99285; 99291

== ENCOUNTER → 2019-08-11 07:52 | Outpatient (CLI) | payer MEDICARE, OTHER, SELFPAY ==
[2019-08-11 09:28] LABS: BUN Creatinine Ratio 15.7 (6-22); Blood Urea Nitrogen 11 mg/dL (7-17); Calcium 9.1 mg/dL (8.4-10.2); Carbon Dioxide 32 mmol/L (22-32); Chloride 101 mmol/L (98-107); Estimated Glomerular Filt Rate > 60.0 mL/min (>60); Glucose 90 mg/dL (80-110); HEMOLYSIS < 15 (0-50); Potassium 3.4 mmol/L (3.4-5.1); Sodium 142 mmol/L (137-145)
== END ==
PROVIDERS: Family Provider Student in an Organized Health Care Education/Training Program; PCP Student in an Organized Health Care Education/Training Program; Visit Provider Internal Medicine Cardiovascular Disease
DX: Z95.0 Presence of cardiac pacemaker (principal)
CPT/HCPCS: 36415; 80048

== ENCOUNTER → 2019-08-26 08:01 | Outpatient (CLI) | payer MEDICARE, OTHER, SELFPAY ==
[2019-08-26 10:32] LABS: Blood Urea Nitrogen 12 mg/dL (7-17); Calcium 9.4 mg/dL (8.4-10.2); Carbon Dioxide 30 mmol/L (22-32); Chloride 105 mmol/L (98-107); Estimated Glomerular Filt Rate > 60.0 mL/min (>60); Glucose 87 mg/dL (80-110); HEMOLYSIS < 15 (0-50); Potassium 4.1 mmol/L (3.4-5.1); Sodium 142 mmol/L (137-145)
== END ==
PROVIDERS: Family Provider Student in an Organized Health Care Education/Training Program; PCP Student in an Organized Health Care Education/Training Program; Visit Provider Internal Medicine Cardiovascular Disease
DX: Z95.0 Presence of cardiac pacemaker (principal)
CPT/HCPCS: 36415; 80048

== ENCOUNTER → 2020-01-05 16:46 | Outpatient (CLI) | payer MEDICARE, OTHER, SELFPAY ==
--- NOTE | 2020-01-05 16:50 | DI.RAD.S_ITS ---
PROCEDURE: XR HIP W PEL IF DONE RT 2V INDICATIONS: Right hip pain TECHNIQUE: 2 views of the hip were acquired. COMPARISON: None. FINDINGS: Bones: No fractures or dislocations. No suspicious bony lesions. The visualized pelvic ring appears intact. Mild right hip and sacroiliac joint degeneration. Soft tissues: No suspicious soft tissue calcifications or masses. IMPRESSION: Mild degenerative joint disease. No fracture or dislocation. Dictated by: Hans Trevizo M.D. on 01/05/2020 at 17:33 Approved by: Hans Trevizo M.D. on 01/05/2020 at 17:34
== END ==
PROVIDERS: Family Provider Student in an Organized Health Care Education/Training Program; PCP Student in an Organized Health Care Education/Training Program; Referring Provider Student in an Organized Health Care Education/Training Program; Visit Provider Student in an Organized Health Care Education/Training Program
DX: M25.551 Pain in right hip (principal); M16.11 Unilateral primary osteoarthritis, right hip; M47.898 Other spondylosis, sacral and sacrococcygeal region; M85.80 Other specified disorders of bone density and structure, unspecified site
CPT/HCPCS: 73502

== ENCOUNTER 2020-02-07 09:45 | Outpatient (RCR) | payer MEDICARE, OTHER, SELFPAY ==
--- NOTE | 2020-01-31 15:11 | PT.OIE ---
Current Diagnoses Pain in right hip (01/31/20) Past Medical History (Last Reviewed 06/27/19 @ 14:19 by Krissy Covarrubias MD) Atrial flutter (Chronic 03/2016) Chicken pox (Resolved ~1949) Depression (Chronic) Dyslexia (Chronic 1945) Fibroids (Resolved ~1979) Foot pain (Chronic 2004) Frozen shoulder (Resolved 1978) Hayfever (Resolved ~1959) History of heavy periods (Resolved ~1979) Infertility (Resolved 1977) Measles (Resolved ~1949) Mumps (Resolved ~1949) Osteoarthritis (Chronic) Osteopenia (Chronic) Osteoporosis (Chronic 2012) Painful menstrual periods (Resolved ~1958) PTSD (post-traumatic stress disorder) (Chronic) Recurrent sinusitis (Resolved ~1969) Vertigo (Chronic) Vulvar intraepithelial neoplasia (ERIC) (Resolved 2007) Past Surgical History (Last Reviewed 06/27/19 @ 14:19 by Krissy Covarrubias MD) Anesthesia (Resolved) History of cardiac radiofrequency ablation (RFA) (Resolved 2015) History of gynecologic surgery (Resolved ~1979) History of shoulder surgery (Resolved 1978) History of sinus surgery (Resolved ~1979) Status post cholecystectomy (Resolved 1993) Status post hysterectomy (Resolved 1988) Status post surgical removal of neoplasm of skin (Resolved 2007) Visit Care Team Role Provider Type Ashly Hightower DO Family Provider Physician Specialty: Family Practice Address: [address] [place] [address] Email: [email or web address] Jacobo Day MD Attending Provider Physician Primary Care Provider Referring Provider Specialty: Internal Medicine Address: [address] [place] [address] Email: [email or web address] Physical Therapy Initial Evaluation PT-OP-A Visit Information Start: 01/31/20 13:46 Freq: Status: Active Protocol: Document 01/31/20 13:49 MB (Rec: 01/31/20 14:36 MB [id number]) Out-Patient Physical Therapy Visit Information Visit Information Visit Type Initial Evaluation Visit Note Medicare, unlimited visits Visit Start Time 13:49 Visit Stop Time 14:30 Total Visit Minutes 41 Visit Number 1 Evaluation Information Evaluation Date 01/31/20 PT-OP-B Current Condition Start: 01/31/20 13:46 Freq: Status: Active Protocol: Document 01/31/20 13:49 MB (Rec: 01/31/20 14:36 MB [id number]) Current Condition History of Current Condition Onset Date 1 year ago Current Complaints R leg pain worse with walking and turning History of Current Condition Pt fell down the steps going backwards holding onto rail and landed on her bum and outside of right leg. She had trouble getting up. She lives alone and has a life alert. She did finally get up using steps. Stairs on left going up and she a flight of steps to basement freezer. She has two steps to get into the house and it has 2 rails. She can only reach one at a time. She uses cane in left hand. She has right knee and right hip pain. She is walking up to 1 1/2 miles. She uses heating pad and ice pack. She reports 6/10 pain at it's worse. Pain assessent grid has lateral right hip circled. She occ awakens d/t pain. She prefers sleeping on her right side and does try to sleep on her left some. She is not using pillow support. PMH: PT in the past for right ITB pain and it got better, back pain, arthritis, depression, OP, pacemaker, closed manipulation for left frozen shoulder, L BBB and ablation, history of lasix use d/t right leg swelling, right leg length discrepancy and lift. Prior Treatments and Tests X-ray of right hip: 01/05/2020 revealed mild DJD, no fx or dislocation Treatment Goals Patient/Caregiver Goals Pt wants to go to [place] this [place] and needs to be able to walk 3-5 miles a day on [place]. PT-OP-C Subjective Start: 01/31/20 13:46 Freq: Status: Active Protocol: Document 01/31/20 13:49 MB (Rec: 01/31/20 15:11 MB [id number]) OP-PT Subjective Patient Comments Patient Comments See history of current complaints Patient Questionnaires Lymphedema Life Impact Score Lymphedema Impairment 20 to 39% Impaired (Score 33- 46) PT-OP-D Balance Start: 01/31/20 13:46 Freq: Status: Active Protocol: Document 01/31/20 13:49 MB (Rec: 01/31/20 15:11 MB [id number]) Balance Tests Romberg Romberg Pt unable to get into position without UE support PT-OP-G Mobility & Gait Start: 01/31/20 13:46 Freq: Status: Active Protocol: Document 01/31/20 13:49 MB (Rec: 01/31/20 15:11 MB [id number]) OP Gait Assessment Comments Gait Comments SPC left hand with slow nadia. Pt has pelvic and knee alignment changes with increased right knee valgus. Decreased heel strike and toe off. PT-OP-J Posture/Palpation/Skin Start: 01/31/20 13:46 Freq: Status: Active Protocol: Document 01/31/20 13:49 MB (Rec: 01/31/20 15:11 MB [id number]) Posture Evaluation Comments Posture Comments Standing:pt barefoot, forward head, rounded shoulders with tragus 3 in front of AC joint , decreased thoracic kyphosis, anterior tilt pelvis, curvature of spine that may be related to known leg length discrepancy, right leg shorter than left. R shoulder lower than the left, trunk laterally shifted to the right, increased knee valgus on the right and right greater than left overpronation ankle and foot flat. L iliac crest higher than the right. Right ankle swelling greater than the left PT-OP-K Range of Motion Start: 01/31/20 13:46 Freq: Status: Active Protocol: Document 01/31/20 13:49 MB (Rec: 01/31/20 15:11 MB [id number]) Knee Goniometric Range of Motion Knee Left Knee ROM WFL No Patient Position Supine Flexion Active (degrees) 120 Extension Passive (degrees) 16 Right Knee ROM WFL No Patient Position Supine Flexion Active (degrees) 85 Extension Passive (degrees) 25 Knee ROM Limitations Knee ROM Limitations Bony Restriction,Pain,Swelling PT-OP-M Strength Start: 01/31/20 13:46 Freq: Status: Active Protocol: Document 01/31/20 13:49 MB (Rec: 01/31/20 15:11 MB [id number]) Hip Strength Hip Manual Muscle Testing Left Flexion (L2) 4 Good Extension (S1) 4 Good Right Comments NT hip flexion and abduction d /t fear of pain Knee Strength Knee Manual Muscle Testing Left Flexion (S2) 4 Good Extension (L3) 5 Normal Comments In limited ROM Right Flexion (S2) 5 Normal Extension (L3) 5 Normal Comments In limited ROM Ankle/Foot Strength Ankle and Foot Manual Muscle Testing Left Dorsiflexion (L4) 5 Normal Inversion 5 Normal Eversion (S1) 5 Normal Comments Great toe extension 5/5 Right Dorsiflexion (L4) 5 Normal Inversion 5 Normal Eversion (S1) 4 Good Comments Great toe extension 5/5 PT-OP-Q Treatments Start: 01/31/20 13:46 Freq: Status: Active Protocol: Document 01/31/20 13:49 MB (Rec: 01/31/20 15:11 MB [id number]) Therapeutic Exercises Supine Exercises Pelvic realignment exercises Comments Educated pt and added to HEP, pt performs 5 reps, 3 sec hold PT-OP-T Assessment and Plan Start: 01/31/20 13:46 Freq: Status: Active Protocol: Document 01/31/20 13:49 MB (Rec: 01/31/20 15:11 MB [id number]) Physical Therapy Assessment Rehab Potential Rehabilitation Potential Good Evaluation Complexity Number of Personal Factors/Comorbidities 0 Number of Body Systems Impaired 1-2 Clinical Presentation at Evaluation Stable Impairments Impairments Balance,Edema,Gait,Integument, Pain,Posture,ROM,Soft Tissue Mobility,Strength Goals 6 Preservative Filler Machine Operator Goal (LTG) Pt will gait train 1000 feet in 6 minutes with LRAD to improve gait distance to prepare for trip to [place] by 04/02/2020. LTG Duration 8 weeks 5 Halfway Goal (LTG) Pt will perform 5 reps sit to stand without UE support in less than 13 sec to improve functional mobility by 2019. LTG Duration 8 weeks 4 Halfway Goal (LTG) Pt will present with improved B hip flexion and abduction strength to at least 4/5 and right knee flexion to 5/5 in available range by 04/02/2020 to improve balance and gait. LTG Duration 8 weeks 3 Preservative Filler Machine Operator Goal (LTG) Pt will perform progressive HEP with I including postural, pelvic alignment, flexibility , strength and balance exercises by 04/02/2020. LTG Duration 8 weeks 2 Preservative Filler Machine Operator Goal (LTG) Pt will report a 65% improvement in right hip and knee pain to improve gait distance by 04/02/2020. LTG Duration 8 weeks 1 Halfway Goal (LTG) Pt will present with an improved LE functional index score to reflect no more than 20% impairment to progress gait distance by 04/02/2020. LTG Duration 8 weeks Assessment Summary Assessment Pt is a 74 y/o female presenting with progressive degenerative changes that are contributory to her hip and knee limitations and pain. Her right knee has increased valgus, right ankle has increased overpronation, right ankle has increased edema compared to the left. She has known leg length discrepancy, right shoulder than left, and her alignment from leg to hip to spine to shoulder is asymmetrical in standing. Passive hip ER and IR are equally limited in supine (30 deg ER and 15 deg IR) but she has posterior hip pain with passive right movement. Pt also presents with weakness and gait and balance changes. She will benefit from PT for flexibility, pelvic realignment, postural, strengthening and balance exercises. Unsure that her knee range will change in setting of likely joint changes but will attempt to improve flexibility and strength of legs. Degenerative changes are barriers to PT. She may benefit from further footwear and heel lift changes . Physical Therapy Plan Frequency and Duration Frequency of Treatment 2x/Week Duration of Treatment 8 weeks Plan of Care Start Date 01/31/20 Plan of Care End Date 04/02/20 Therapeutic Interventions Therapeutic Interventions Aquatic Therapy,Balance Training,Canalithic Repositioning,Gait Training, Home Exercise Program,Joint Mobilizations,Manual Therapy, Neuromuscular Re-education, Orthotic/Prosthetic Management ,Patient/Caregiver Education, Self-Care/Home Management,Soft Tissue Mobilization,Taping, Therapeutic Activities, Therapeutic Exercises Modalities Cold Pack/Ice Massage,Electric Stimulation,Hot Packs, Ultrasound Other Therapeutic Interventions LTT Next Visit Focus/Plan Next Note Type Treatment Note Next Visit Plan Review pelvic realignment exercises and progress HEP
--- NOTE | 2020-01-31 15:12 | PT.OPPOC ---
Physical, Occupational & Speech Therapy At [facility] Current Diagnoses Pain in right hip (01/31/20) Visit Care Team Role Provider Type Ashly Hightower DO Family Provider Physician Specialty: Family Practice Address: [address] [place] [address], [facility] [address], [place], [address] Email: [email or web address] Jacobo Day MD Attending Provider Physician Primary Care Provider Referring Provider Specialty: Internal Medicine Address: [address] [place] [address], [address], [place], [address] Email: [email or web address] Plan Of Care PT-OP-T Assessment and Plan Start: 01/31/20 13:46 Freq: Status: Active Protocol: Document 01/31/20 13:49 MB (Rec: 01/31/20 15:11 MB [id number]) Physical Therapy Assessment Rehab Potential Rehabilitation Potential Good Evaluation Complexity Number of Personal Factors/Comorbidities 0 Number of Body Systems Impaired 1-2 Clinical Presentation at Evaluation Stable Impairments Impairments Balance,Edema,Gait,Integument, Pain,Posture,ROM,Soft Tissue Mobility,Strength Goals 6 Spa Associate Goal (LTG) Pt will gait train 1000 feet in 6 minutes with LRAD to improve gait distance to prepare for trip to [place] by 04/02/2020. LTG Duration 8 weeks 5 Spa Associate Goal (LTG) Pt will perform 5 reps sit to stand without UE support in less than 13 sec to improve functional mobility by 2019. LTG Duration 8 weeks 4 Spa Associate Goal (LTG) Pt will present with improved B hip flexion and abduction strength to at least 4/5 and right knee flexion to 5/5 in available range by 04/02/2020 to improve balance and gait. LTG Duration 8 weeks 3 Skilled Nursing Goal (LTG) Pt will perform progressive HEP with I including postural, pelvic alignment, flexibility , strength and balance exercises by 04/02/2020. LTG Duration 8 weeks 2 Spa Associate Goal (LTG) Pt will report a 65% improvement in right hip and knee pain to improve gait distance by 04/02/2020. LTG Duration 8 weeks 1 Spa Associate Goal (LTG) Pt will present with an improved LE functional index score to reflect no more than 20% impairment to progress gait distance by 04/02/2020. LTG Duration 8 weeks Assessment Summary Assessment Pt is a 74 y/o female presenting with progressive degenerative changes that are contributory to her hip and knee limitations and pain. Her right knee has increased valgus, right ankle has increased overpronation, right ankle has increased edema compared to the left. She has known leg length discrepancy, right shoulder than left, and her alignment from leg to hip to spine to shoulder is asymmetrical in standing. Passive hip ER and IR are equally limited in supine (30 deg ER and 15 deg IR) but she has posterior hip pain with passive right movement. Pt also presents with weakness and gait and balance changes. She will benefit from PT for flexibility, pelvic realignment, postural, strengthening and balance exercises. Unsure that her knee range will change in setting of likely joint changes but will attempt to improve flexibility and strength of legs. Degenerative changes are barriers to PT. She may benefit from further footwear and heel lift changes . Physical Therapy Plan Frequency and Duration Frequency of Treatment 2x/Week Duration of Treatment 8 weeks Plan of Care Start Date 01/31/20 Plan of Care End Date 04/02/20 Therapeutic Interventions Therapeutic Interventions Aquatic Therapy,Balance Training,Canalithic Repositioning,Gait Training, Home Exercise Program,Joint Mobilizations,Manual Therapy, Neuromuscular Re-education, Orthotic/Prosthetic Management ,Patient/Caregiver Education, Self-Care/Home Management,Soft Tissue Mobilization,Taping, Therapeutic Activities, Therapeutic Exercises Modalities Cold Pack/Ice Massage,Electric Stimulation,Hot Packs, Ultrasound Other Therapeutic Interventions LTT Next Visit Focus/Plan Next Note Type Treatment Note Next Visit Plan Review pelvic realignment exercises and progress HEP Plan of Care Dates Plan of Care Start Date 01/31/20 Plan of Care End Date 04/02/20 Electronically Signed by: Kirstie Delgado PT 01/31/20 [id number] Please Sign and Return: I have reviewed this Plan of Care and certify that the skilled therapy services above are required to meet the patient?s needs. Physician Signature Date Printed Name and Credentials Clinical Instructor Signature Printed Name and Credentials
--- NOTE | 2020-02-02 12:25 | PT.OTN ---
Current Diagnoses Pain in right hip (02/02/20) Physical Therapy Treatment Note PT-OP-A Visit Information Start: 01/31/20 13:46 Freq: Status: Active Protocol: Document 02/02/20 11:27 MB (Rec: 02/02/20 12:15 MB [id number]) Out-Patient Physical Therapy Visit Information Visit Information Visit Type Initial Evaluation Visit Note Medicare, unlimited visits Visit Start Time 11:27 Visit Stop Time 12:05 Total Visit Minutes 38 Visit Number 2 PT-OP-B Current Condition Start: 01/31/20 13:46 Freq: Status: Active Protocol: Document 01/31/20 13:49 MB (Rec: 01/31/20 14:36 MB [id number]) Current Condition History of Current Condition Onset Date 1 year ago Current Complaints R leg pain worse with walking and turning History of Current Condition Pt fell down the steps going backwards holding onto rail and landed on her bum and outside of right leg. She had trouble getting up. She lives alone and has a life alert. She did finally get up using steps. Stairs on left going up and she a flight of steps to basement freezer. She has two steps to get into the house and it has 2 rails. She can only reach one at a time. She uses cane in left hand. She has right knee and right hip pain. She is walking up to 1 1/2 miles. She uses heating pad and ice pack. She reports 6/10 pain at it's worse. Pain assessent grid has lateral right hip circled. She occ awakens d/t pain. She prefers sleeping on her right side and does try to sleep on her left some. She is not using pillow support. PMH: PT in the past for right ITB pain and it got better, back pain, arthritis, depression, OP, pacemaker, closed manipulation for left frozen shoulder, L BBB and ablation, history of lasix use d/t right leg swelling, right leg length discrepancy and lift. Prior Treatments and Tests X-ray of right hip: 01/05/2020 revealed mild DJD, no fx or dislocation Treatment Goals Patient/Caregiver Goals Pt wants to go to [place] this [place] and needs to be able to walk 3-5 miles a day on [place]. PT-OP-C Subjective Start: 01/31/20 13:46 Freq: Status: Active Protocol: Document 02/02/20 11:27 MB (Rec: 02/02/20 12:21 MB [id number]) OP-PT Subjective Patient Comments Patient Comments Pt reports that she had a good night's sleep two nights ago but that last night was a rough night as far as B leg pain when sleeping. PT-OP-D Balance Start: 01/31/20 13:46 Freq: Status: Active Protocol: Document 01/31/20 13:49 MB (Rec: 01/31/20 15:11 MB [id number]) Balance Tests Romberg Romberg Pt unable to get into position without UE support PT-OP-G Mobility & Gait Start: 01/31/20 13:46 Freq: Status: Active Protocol: Document 01/31/20 13:49 MB (Rec: 01/31/20 15:11 MB [id number]) OP Gait Assessment Comments Gait Comments SPC left hand with slow nadia. Pt has pelvic and knee alignment changes with increased right knee valgus. Decreased heel strike and toe off. PT-OP-J Posture/Palpation/Skin Start: 01/31/20 13:46 Freq: Status: Active Protocol: Document 01/31/20 13:49 MB (Rec: 01/31/20 15:11 MB [id number]) Posture Evaluation Comments Posture Comments Standing:pt barefoot, forward head, rounded shoulders with tragus 3 in front of AC joint , decreased thoracic kyphosis, anterior tilt pelvis, curvature of spine that may be related to known leg length discrepancy, right leg shorter than left. R shoulder lower than the left, trunk laterally shifted to the right, increased knee valgus on the right and right greater than left overpronation ankle and foot flat. L iliac crest higher than the right. Right ankle swelling greater than the left PT-OP-K Range of Motion Start: 01/31/20 13:46 Freq: Status: Active Protocol: Document 01/31/20 13:49 MB (Rec: 01/31/20 15:11 MB [id number]) Knee Goniometric Range of Motion Knee Left Knee ROM WFL No Patient Position Supine Flexion Active (degrees) 120 Extension Passive (degrees) 16 Right Knee ROM WFL No Patient Position Supine Flexion Active (degrees) 85 Extension Passive (degrees) 25 Knee ROM Limitations Knee ROM Limitations Bony Restriction,Pain,Swelling PT-OP-M Strength Start: 01/31/20 13:46 Freq: Status: Active Protocol: Document 01/31/20 13:49 MB (Rec: 01/31/20 15:11 MB [id number]) Hip Strength Hip Manual Muscle Testing Left Flexion (L2) 4 Good Extension (S1) 4 Good Right Comments NT hip flexion and abduction d /t fear of pain Knee Strength Knee Manual Muscle Testing Left Flexion (S2) 4 Good Extension (L3) 5 Normal Comments In limited ROM Right Flexion (S2) 5 Normal Extension (L3) 5 Normal Comments In limited ROM Ankle/Foot Strength Ankle and Foot Manual Muscle Testing Left Dorsiflexion (L4) 5 Normal Inversion 5 Normal Eversion (S1) 5 Normal Comments Great toe extension 5/5 Right Dorsiflexion (L4) 5 Normal Inversion 5 Normal Eversion (S1) 4 Good Comments Great toe extension 5/5 PT-OP-Q Treatments Start: 01/31/20 13:46 Freq: Status: Active Protocol: Document 02/02/20 11:27 MB (Rec: 02/02/20 12:15 MB [id number]) Cardio Equipment Recumbent Elliptical ([employer]) Duration (Minutes) 10 Resistance 3 Therapeutic Exercises Supine Exercises HS Comments Performed B, focus on stretching out leg Hamstring stretch Comments B with APs, hold 30 Pelvic realignment exercises Comments Pt performs with cues today Self-Care/Home Management Treatment Education Other Education Ed pt on benefits of compression hose, measured, 8- 20 mmHg, benefits of speaking to pharmacist about her medications in setting of B leg pain at night. She takes potassium, ed pt to talk with doctor about fluid intake, added very narrow full-length lift to right shoe to see if it helps gait, pt to try and take out if not helpful PT-OP-T Assessment and Plan Start: 01/31/20 13:46 Freq: Status: Active Protocol: Document 02/02/20 11:27 MB (Rec: 02/02/20 12:15 MB [id number]) Physical Therapy Assessment Rehab Potential Rehabilitation Potential Good Evaluation Complexity Number of Personal Factors/Comorbidities 0 Number of Body Systems Impaired 1-2 Clinical Presentation at Evaluation Stable Impairments Impairments Balance,Edema,Gait,Integument, Pain,Posture,ROM,Soft Tissue Mobility,Strength Goals 6 Prison Goal (LTG) Pt will gait train 1000 feet in 6 minutes with LRAD to improve gait distance to prepare for trip to [place] by 04/02/2020. LTG Duration 8 weeks 5 Wax Specialist Goal (LTG) Pt will perform 5 reps sit to stand without UE support in less than 13 sec to improve functional mobility by 2019. LTG Duration 8 weeks 4 Prison Goal (LTG) Pt will present with improved B hip flexion and abduction strength to at least 4/5 and right knee flexion to 5/5 in available range by 04/02/2020 to improve balance and gait. LTG Duration 8 weeks 3 Wax Specialist Goal (LTG) Pt will perform progressive HEP with I including postural, pelvic alignment, flexibility , strength and balance exercises by 04/02/2020. LTG Duration 8 weeks 2 Prison Goal (LTG) Pt will report a 65% improvement in right hip and knee pain to improve gait distance by 04/02/2020. LTG Duration 8 weeks 1 Prison Goal (LTG) Pt will present with an improved LE functional index score to reflect no more than 20% impairment to progress gait distance by 04/02/2020. LTG Duration 8 weeks Assessment Summary Assessment Pt is a 74 y/o female presenting with progressive degenerative changes that are contributory to her hip and knee limitations and pain. Her right knee has increased valgus, right ankle has increased overpronation, right ankle has increased edema compared to the left. She has known leg length discrepancy, right shoulder than left, and her alignment from leg to hip to spine to shoulder is asymmetrical in standing. Passive hip ER and IR are equally limited in supine (30 deg ER and 15 deg IR) but she has posterior hip pain with passive right movement. Pt also presents with weakness and gait and balance changes. She will benefit from PT for flexibility, pelvic realignment, postural, strengthening and balance exercises. Unsure that her knee range will change in setting of likely joint changes but will attempt to improve flexibility and strength of legs. Degenerative changes are barriers to PT. She may benefit from further footwear and heel lift changes . Physical Therapy Plan Frequency and Duration Frequency of Treatment 2x/Week Duration of Treatment 8 weeks Plan of Care Start Date 01/31/20 Plan of Care End Date 04/02/20 Therapeutic Interventions Therapeutic Interventions Aquatic Therapy,Balance Training,Canalithic Repositioning,Gait Training, Home Exercise Program,Joint Mobilizations,Manual Therapy, Neuromuscular Re-education, Orthotic/Prosthetic Management ,Patient/Caregiver Education, Self-Care/Home Management,Soft Tissue Mobilization,Taping, Therapeutic Activities, Therapeutic Exercises Modalities Cold Pack/Ice Massage,Electric Stimulation,Hot Packs, Ultrasound Other Therapeutic Interventions LTT Next Visit Focus/Plan Next Note Type Treatment Note Next Visit Plan Con't to progress
--- NOTE | 2020-02-07 10:29 | PT.OTN ---
Current Diagnoses Pain in right hip (02/07/20) Physical Therapy Treatment Note PT-OP-A Visit Information Start: 01/31/20 13:46 Freq: Status: Active Protocol: Document 02/07/20 09:45 MB (Rec: 02/07/20 10:29 MB [id number]) Out-Patient Physical Therapy Visit Information Visit Information Visit Type Treatment Note Visit Note Medicare, unlimited visits Visit Start Time 09:50 Visit Stop Time 10:30 Total Visit Minutes 40 Visit Number 3 PT-OP-B Current Condition Start: 01/31/20 13:46 Freq: Status: Active Protocol: Document 01/31/20 13:49 MB (Rec: 01/31/20 14:36 MB [id number]) Current Condition History of Current Condition Onset Date 1 year ago Current Complaints R leg pain worse with walking and turning History of Current Condition Pt fell down the steps going backwards holding onto rail and landed on her bum and outside of right leg. She had trouble getting up. She lives alone and has a life alert. She did finally get up using steps. Stairs on left going up and she a flight of steps to basement freezer. She has two steps to get into the house and it has 2 rails. She can only reach one at a time. She uses cane in left hand. She has right knee and right hip pain. She is walking up to 1 1/2 miles. She uses heating pad and ice pack. She reports 6/10 pain at it's worse. Pain assessent grid has lateral right hip circled. She occ awakens d/t pain. She prefers sleeping on her right side and does try to sleep on her left some. She is not using pillow support. PMH: PT in the past for right ITB pain and it got better, back pain, arthritis, depression, OP, pacemaker, closed manipulation for left frozen shoulder, L BBB and ablation, history of lasix use d/t right leg swelling, right leg length discrepancy and lift. Prior Treatments and Tests X-ray of right hip: 01/05/2020 revealed mild DJD, no fx or dislocation Treatment Goals Patient/Caregiver Goals Pt wants to go [place] this [place] and needs to be able to walk 3-5 miles a day on [place]. PT-OP-C Subjective Start: 01/31/20 13:46 Freq: Status: Active Protocol: Document 02/07/20 09:45 MB (Rec: 02/07/20 10:29 MB [id number]) OP-PT Subjective Patient Comments Patient Comments Pt would like to con't with treatment today. PT explained that PT is wearing mask d/t found out today PT had patient exposure to COVID-19 12 days ago and PT has been symptom and fever free. PT has been cleared by [employer]. Pt states she would like to con' t with PT today. Pt has been performing exercises without trouble. Pt states that she has not had leg cramping the last couple of nights and she did exercises before bed. PT-OP-D Balance Start: 01/31/20 13:46 Freq: Status: Active Protocol: Document 01/31/20 13:49 MB (Rec: 01/31/20 15:11 MB [id number]) Balance Tests Romberg Romberg Pt unable to get into position without UE support PT-OP-G Mobility & Gait Start: 01/31/20 13:46 Freq: Status: Active Protocol: Document 01/31/20 13:49 MB (Rec: 01/31/20 15:11 MB [id number]) OP Gait Assessment Comments Gait Comments SPC left hand with slow nadia. Pt has pelvic and knee alignment changes with increased right knee valgus. Decreased heel strike and toe off. PT-OP-J Posture/Palpation/Skin Start: 01/31/20 13:46 Freq: Status: Active Protocol: Document 01/31/20 13:49 MB (Rec: 01/31/20 15:11 MB [id number]) Posture Evaluation Comments Posture Comments Standing:pt barefoot, forward head, rounded shoulders with tragus 3 in front of AC joint , decreased thoracic kyphosis, anterior tilt pelvis, curvature of spine that may be related to known leg length discrepancy, right leg shorter than left. R shoulder lower than the left, trunk laterally shifted to the right, increased knee valgus on the right and right greater than left overpronation ankle and foot flat. L iliac crest higher than the right. Right ankle swelling greater than the left PT-OP-K Range of Motion Start: 01/31/20 13:46 Freq: Status: Active Protocol: Document 01/31/20 13:49 MB (Rec: 01/31/20 15:11 MB [id number]) Knee Goniometric Range of Motion Knee Left Knee ROM WFL No Patient Position Supine Flexion Active (degrees) 120 Extension Passive (degrees) 16 Right Knee ROM WFL No Patient Position Supine Flexion Active (degrees) 85 Extension Passive (degrees) 25 Knee ROM Limitations Knee ROM Limitations Bony Restriction,Pain,Swelling PT-OP-M Strength Start: 01/31/20 13:46 Freq: Status: Active Protocol: Document 01/31/20 13:49 MB (Rec: 01/31/20 15:11 MB [id number]) Hip Strength Hip Manual Muscle Testing Left Flexion (L2) 4 Good Extension (S1) 4 Good Right Comments NT hip flexion and abduction d /t fear of pain Knee Strength Knee Manual Muscle Testing Left Flexion (S2) 4 Good Extension (L3) 5 Normal Comments In limited ROM Right Flexion (S2) 5 Normal Extension (L3) 5 Normal Comments In limited ROM Ankle/Foot Strength Ankle and Foot Manual Muscle Testing Left Dorsiflexion (L4) 5 Normal Inversion 5 Normal Eversion (S1) 5 Normal Comments Great toe extension 5/5 Right Dorsiflexion (L4) 5 Normal Inversion 5 Normal Eversion (S1) 4 Good Comments Great toe extension 5/5 PT-OP-Q Treatments Start: 01/31/20 13:46 Freq: Status: Active Protocol: Document 02/07/20 09:45 MB (Rec: 02/07/20 10:29 MB [id number]) Cardio Equipment Recumbent Elliptical (Biodex) Duration (Minutes) 10 Resistance 1-3 Therapeutic Exercises Sitting Exercises Quad rolling with pin Comments Quad rolling in sitting Standing Exercises Gastroc and soleus stretching in standing Comments Performed this date B, hold 30 sec each, toes up Crab walking with level 1 band Comments Side stepping and band added to HEP, 5 steps to the right and left Hip abduction and extension in standing with level 1 band Comments 5 reps B, ed to stand upright and engage core PT-OP-T Assessment and Plan Start: 01/31/20 13:46 Freq: Status: Active Protocol: Document 02/07/20 09:45 MB (Rec: 02/07/20 10:29 MB [id number]) Physical Therapy Assessment Rehab Potential Rehabilitation Potential Good Evaluation Complexity Number of Personal Factors/Comorbidities 0 Number of Body Systems Impaired 1-2 Clinical Presentation at Evaluation Stable Impairments Impairments Balance,Edema,Gait,Integument, Pain,Posture,ROM,Soft Tissue Mobility,Strength Goals 6 Snf Goal (LTG) Pt will gait train 1000 feet in 6 minutes with LRAD to improve gait distance to prepare for trip to [place] by 04/02/2020. LTG Duration 8 weeks 5 [employer] President Goal (LTG) Pt will perform 5 reps sit to stand without UE support in less than 13 sec to improve functional mobility by 2019. LTG Duration 8 weeks 4 Snf Goal (LTG) Pt will present with improved B hip flexion and abduction strength to at least 4/5 and right knee flexion to 5/5 in available range by 04/02/2020 to improve balance and gait. LTG Duration 8 weeks 3 Snf Goal (LTG) Pt will perform progressive HEP with I including postural, pelvic alignment, flexibility , strength and balance exercises by 04/02/2020. LTG Duration 8 weeks 2 Snf Goal (LTG) Pt will report a 65% improvement in right hip and knee pain to improve gait distance by 04/02/2020. LTG Duration 8 weeks 1 [employer] President Goal (LTG) Pt will present with an improved LE functional index score to reflect no more than 20% impairment to progress gait distance by 04/02/2020. LTG Duration 8 weeks Assessment Summary Assessment Progressed flexibility and initiated strengthening exercises today. Will advance core in future treatments. Clinic will be closed and pt to con't with exercises until PT starts again. Physical Therapy Plan Frequency and Duration Frequency of Treatment 2x/Week Duration of Treatment 8 weeks Plan of Care Start Date 01/31/20 Plan of Care End Date 04/02/20 Therapeutic Interventions Therapeutic Interventions Aquatic Therapy,Balance Training,Canalithic Repositioning,Gait Training, Home Exercise Program,Joint Mobilizations,Manual Therapy, Neuromuscular Re-education, Orthotic/Prosthetic Management ,Patient/Caregiver Education, Self-Care/Home Management,Soft Tissue Mobilization,Taping, Therapeutic Activities, Therapeutic Exercises Modalities Cold Pack/Ice Massage,Electric Stimulation,Hot Packs, Ultrasound Other Therapeutic Interventions LTT Next Visit Focus/Plan Next Note Type Treatment Note Next Visit Plan Con't to progress core exercises
--- NOTE | 2020-02-25 12:19 | PT-OP ANOTE ---
Pt states that she is doing well. She has been cutting back blackberries. She would like to have e-visits if they are offered by the hospital. She has two appointments set up in March so far.
--- NOTE | 2020-03-10 17:26 | PT-OP ANOTE ---
PT calls pt. Pt states that she is doing her PT routine and would rather d/c PT at this time in the current COVID situation.
--- NOTE | 2020-03-10 17:32 | PT.OPDS ---
Current Diagnoses Pain in right hip (02/07/20) Visit Care Team Role Provider Type Ashly Hightower DO Family Provider Physician Specialty: Family Practice Address: [address] [place] [address], [address], [place], [address] Email: [email or web address] Jacobo Day MD Attending Provider Physician Primary Care Provider Referring Provider Specialty: Internal Medicine Address: [address] [place] [address], [address], [place], [address] Email: [email or web address] Visit Number Visit Number 3 Discharge Summary PT-OP-B Current Condition Start: 01/31/20 13:46 Freq: Status: Active Protocol: Document 01/31/20 13:49 MB (Rec: 01/31/20 14:36 MB [id number]) Current Condition History of Current Condition Onset Date 1 year ago Current Complaints R leg pain worse with walking and turning History of Current Condition Pt fell down the steps going backwards holding onto rail and landed on her bum and outside of right leg. She had trouble getting up. She lives alone and has a life alert. She did finally get up using steps. Stairs on left going up and she a flight of steps to basement freezer. She has two steps to get into the house and it has 2 rails. She can only reach one at a time. She uses cane in left hand. She has right knee and right hip pain. She is walking up to 1 1/2 miles. She uses heating pad and ice pack. She reports 6/10 pain at it's worse. Pain assessent grid has lateral right hip circled. She occ awakens d/t pain. She prefers sleeping on her right side and does try to sleep on her left some. She is not using pillow support. PMH: PT in the past for right ITB pain and it got better, back pain, arthritis, depression, OP, pacemaker, closed manipulation for left frozen shoulder, L BBB and ablation, history of lasix use d/t right leg swelling, right leg length discrepancy and lift. Prior Treatments and Tests X-ray of right hip: 01/05/2020 revealed mild DJD, no fx or dislocation Treatment Goals Patient/Caregiver Goals Pt wants to go to [place] this [place] and needs to be able to walk 3-5 miles a day on [place]. PT-OP-C Subjective Start: 01/31/20 13:46 Freq: Status: Active Protocol: Document 02/07/20 09:45 MB (Rec: 02/07/20 10:29 MB [id number]) OP-PT Subjective Patient Comments Patient Comments Pt would like to con't with treatment today. PT explained that PT is wearing mask d/t found out today PT had patient exposure to COVID-19 12 days ago and PT has been symptom and fever free. PT has been cleared by [employer]. Pt states she would like to con' t with PT today. Pt has been performing exercises without trouble. Pt states that she has not had leg cramping the last couple of nights and she did exercises before bed. PT-OP-D Balance Start: 01/31/20 13:46 Freq: Status: Active Protocol: Document 01/31/20 13:49 MB (Rec: 01/31/20 15:11 MB [id number]) Balance Tests Romberg Romberg Pt unable to get into position without UE support PT-OP-G Mobility & Gait Start: 01/31/20 13:46 Freq: Status: Active Protocol: Document 01/31/20 13:49 MB (Rec: 01/31/20 15:11 MB [id number]) OP Gait Assessment Comments Gait Comments SPC left hand with slow nadia. Pt has pelvic and knee alignment changes with increased right knee valgus. Decreased heel strike and toe off. PT-OP-J Posture/Palpation/Skin Start: 01/31/20 13:46 Freq: Status: Active Protocol: Document 01/31/20 13:49 MB (Rec: 01/31/20 15:11 MB [id number]) Posture Evaluation Comments Posture Comments Standing:pt barefoot, forward head, rounded shoulders with tragus 3 in front of AC joint , decreased thoracic kyphosis, anterior tilt pelvis, curvature of spine that may be related to known leg length discrepancy, right leg shorter than left. R shoulder lower than the left, trunk laterally shifted to the right, increased knee valgus on the right and right greater than left overpronation ankle and foot flat. L iliac crest higher than the right. Right ankle swelling greater than the left PT-OP-K Range of Motion Start: 01/31/20 13:46 Freq: Status: Active Protocol: Document 01/31/20 13:49 MB (Rec: 01/31/20 15:11 MB [id number]) Knee Goniometric Range of Motion Knee Left Knee ROM WFL No Patient Position Supine Flexion Active (degrees) 120 Extension Passive (degrees) 16 Right Knee ROM WFL No Patient Position Supine Flexion Active (degrees) 85 Extension Passive (degrees) 25 Knee ROM Limitations Knee ROM Limitations Bony Restriction,Pain,Swelling PT-OP-M Strength Start: 01/31/20 13:46 Freq: Status: Active Protocol: Document 01/31/20 13:49 MB (Rec: 01/31/20 15:11 MB [id number]) Hip Strength Hip Manual Muscle Testing Left Flexion (L2) 4 Good Extension (S1) 4 Good Right Comments NT hip flexion and abduction d /t fear of pain Knee Strength Knee Manual Muscle Testing Left Flexion (S2) 4 Good Extension (L3) 5 Normal Comments In limited ROM Right Flexion (S2) 5 Normal Extension (L3) 5 Normal Comments In limited ROM Ankle/Foot Strength Ankle and Foot Manual Muscle Testing Left Dorsiflexion (L4) 5 Normal Inversion 5 Normal Eversion (S1) 5 Normal Comments Great toe extension 5/5 Right Dorsiflexion (L4) 5 Normal Inversion 5 Normal Eversion (S1) 4 Good Comments Great toe extension 5/5 PT-OP-T Assessment and Plan Start: 01/31/20 13:46 Freq: Status: Active Protocol: Document 03/10/20 17:31 MB (Rec: 03/10/20 17:32 MB [id number]) Physical Therapy Plan Discharge Physical Therapy Discharge Reasons Patient Request Discharge Comments PT calls pt and she is doing well with exercises. She would like to d/c PT at this time.
== END 2020-02-07 11:45 ==
LOC: PHYS 09:45
PROVIDERS: Family Provider Family Medicine; PCP Student in an Organized Health Care Education/Training Program; Referring Provider Student in an Organized Health Care Education/Training Program; Visit Provider Student in an Organized Health Care Education/Training Program
DX: M25.551 Pain in right hip (principal)
CPT/HCPCS: 97110; 97161; 97535

== ENCOUNTER → 2020-03-26 09:01 | Outpatient (CLI) | payer MEDICARE, OTHER, SELFPAY ==
--- NOTE | 2020-03-26 | DI.ECHO.S_ITS ---
[place] +---------+ [facility] +---------+ : : [address] : : : : [id number] : : : : Phone: [phone] : : [phone] +---------+ Echocardiogram Report + + :Name: YUNIOR HALL Study Date: 03/26/2020 Height: 71 in : :[facility] Weight: 194 lb : : Gender: Female BSA: 2.1 m2 : :: 1945 Age: 74 yrs BP: 144/74 mmHg: :Reason For Study: Atrioventricular Blocke : :Ordering Physician: Sina Salazar Performed By: Edwige Healy : :Referring: UNSPECIFIED : + + Interpretation Summary 1) Mildly to moderately increased left ventricular thickness (concentric) with normal size and normal systolic function (EF 55-60%). 2) The right ventricle grossly appears normal in size with probable normal systolic function. There is a pacemaker lead in the right ventricle. 3) No significant valvular abnormalities. 4) There is mild luminal irregularity and echogenicity in the abdominal aorta, suggestive of aortic atherosclerotic disease. 5) Compared to the Echo done 06/29/2019, no significant change in cardiac structure. Procedure: A two-dimensional transthoracic echocardiogram with color flow and Doppler was performed. The study quality was technically adequate. Comparison is made with the echocardiogram of 06/29/2019. The patient has a paced rhythm. The heart rate ranged between 77-85 bpm during the study. Left Ventricle: The left ventricle is normal in size. Proximal septal thickening is noted. There is mild-moderate concentric left ventricular hypertrophy. The ejection fraction is estimated to be 55-60%. Apical wall motion abnormality may reflect pacemaker activation. Diastolic function could not be accurately assessed due to paced rhythm. Right Ventricle: There is a pacemaker lead in the right ventricle. The right ventricle grossly appears normal in size with probable normal systolic function. Atria: Both atria are normal in size. There is a catheter/pacemaker lead seen in the right atrium. There is no Doppler evidence for an interatrial shunt. Mitral Valve: The mitral valve is normal in structure and function. There is mild mitral regurgitation. Aortic Valve: The aortic valve is trileaflet. The aortic valve opens well. There is no aortic valve stenosis. No aortic regurgitation is present. Tricuspid Valve: The tricuspid valve is normal in structure and function. There is mild tricuspid regurgitation. The right ventricular systolic pressure is estimated to be at least 22 mmHg based on an estimated right atrial pressure of 3 mm Hg. Pulmonic Valve: The pulmonic valve is not well visualized. The pulmonic valve is not well seen, but is grossly normal. There is no pulmonic valvular regurgitation. Great Vessels: The aortic root is normal size. The ascending aorta could not be visualized. There is mild luminal irregularity and echogenicity in the abdominal aorta, suggestive of aortic atherosclerotic disease. The IVC is of normal diameter and collapses greater than 50% with a sniff. This suggests a low right atrial pressure of 3 mm Hg. Pericardium/ Pleura There is no pericardial effusion. There is no pleural effusion. MMode/2D Measurements & Calculations LVIDd: 3.9 cm LVOT diam: 1.9 cm LVIDs: 2.8 cm Ao root diam: 3.2 cm FS: 28.0 % Ao Arch Diam (Prox Trans): 3.4 cm EPSS: 0.63 cm IVSd: 1.6 cm LVPWd: 1.2 cm LV hines. diameter/BSA (cm/m^2): 1.9 LV sys. diameter/BSA (cm/m^2): 1.3 LA A2 area: 22.9 cm2 RA long axis: 5.0 cm LA A4 area: 17.1 cm2 RA area: 16.9 cm2 LA length (vol): 4.9 cm RA vol: 48.8 ml LA vol: 68.0 ml RA : 23.4 ml/m2 LA vol index: 32.7 ml/m2 IVC diam: 1.2 cm RVD1 (basal): 3.4 cm TAPSE: 2.0 cm Doppler Measurements & Calculations Ao V2 max: 115.9 cm/sec LVOT Max Brian: 98.7 cm/sec Ao V2 mean: 84.8 cm/sec LV V1 max P.9 mmHg Ao max P.4 mmHg LV V1 VTI: 18.6 cm Ao mean P.2 mmHg LAITH(I,D): 2.5 cm2 Ao V2 VTI: 22.5 cm LAITH(V,D): 2.5 cm2 sev ratio: 0.83 LAITH indexed to BSA (cm^2/m^2): 1.2 TR max brian: 221.3 cm/sec SV(LVOT): 55.4 ml TR max P.8 mmHg PA V2 max: 87.1 cm/sec PA V2 mean: 58.5 cm/sec PA mean P.7 mmHg PA pr(Accel): 29.3 mmHg Reading Physician:10:25 AM
== END ==
PROVIDERS: Family Provider Family Medicine; PCP Student in an Organized Health Care Education/Training Program; Referring Provider Physician Assistant; Visit Provider Physician Assistant
DX: I08.1 Rheumatic disorders of both mitral and tricuspid valves (principal); I44.2 Atrioventricular block, complete; Z95.0 Presence of cardiac pacemaker
CPT/HCPCS: 93306

== ENCOUNTER → 2021-03-12 10:47 | Outpatient (CLI) | payer MEDICARE, OTHER, SELFPAY ==
[2021-03-12 12:38] LABS: BUN Creatinine Ratio 16.4 (6-22); Blood Urea Nitrogen 12 mg/dL (7-17); Calcium 9.7 mg/dL (8.4-10.2); Carbon Dioxide 28 mmol/L (22-32); Chloride 104 mmol/L (98-107); Estimated Glomerular Filt Rate > 60.0 mL/min (>60); Glucose 94 mg/dL (80-110); HEMOLYSIS < 15 (0-50); Potassium 4.3 mmol/L (3.4-5.1); Sodium 139 mmol/L (137-145)
[2021-03-12 12:41] LABS: Vitamin D 25 Hydroxy (D3) 26.8 ng/mL (30.0-100.0)
== END ==
PROVIDERS: Family Provider Family Medicine; PCP Student in an Organized Health Care Education/Training Program; Referring Provider Student in an Organized Health Care Education/Training Program; Visit Provider Student in an Organized Health Care Education/Training Program
DX: M85.80 Other specified disorders of bone density and structure, unspecified site (principal); I10 Essential (primary) hypertension
CPT/HCPCS: 36415; 80048; 82306

== ENCOUNTER → 2021-05-08 12:40 | Outpatient (CLI) | payer MEDICARE, OTHER, SELFPAY | PROVIDERS: Family Provider Family Medicine; PCP Student in an Organized Health Care Education/Training Program; Referring Provider Student in an Organized Health Care Education/Training Program; Visit Provider Student in an Organized Health Care Education/Training Program | DX: M85.851 Other specified disorders of bone density and structure, right thigh (principal); Z78.0 Asymptomatic menopausal state | CPT/HCPCS: 77080 ==

== ENCOUNTER → 2021-06-01 14:03 | Outpatient (CLI) | payer MEDICARE, OTHER, SELFPAY ==
--- NOTE | 2021-06-01 14:04 | DI.MG.S_ITS ---
BILATERAL DIGITAL SCREENING MAMMOGRAM 3D/2D WITH CAD: 06/01/2021 CLINICAL: Routine screening. Comparison is made to exams dated: 09/08/2018 mammogram, 08/11/2017 mammogram, and 08/04/2016 mammogram - [facility]. The tissue of both breasts is heterogeneously dense. This may lower the sensitivity of mammography. Current study was also evaluated with a Computer Aided Detection (CAD) system. There are stable benign calcifications in both breasts. There are mole markers on both breasts. No significant masses, calcifications, or other findings are seen in either breast. There has been no significant interval change. IMPRESSION: BENIGN There is no mammographic evidence of malignancy. A 1 year screening mammogram is recommended. This exam was interpreted at Station ID: [id number]. NOTE: For mammograms, a report in lay terms will be sent to the patient. Approximately 15% of breast malignancies will not be visualized mammographically. In the management of a palpable breast mass, a negative mammogram must not discourage biopsy of a clinically suspicious lesion. Electronically Signed By: Favian Mclean acr/penrad:06/03/2021 08:17:52 letter sent: Normal Exam ACR BI-RADS Category 2: Benign Finding(s) [id number]
== END ==
PROVIDERS: Family Provider Family Medicine; PCP Student in an Organized Health Care Education/Training Program; Referring Provider Student in an Organized Health Care Education/Training Program; Visit Provider Student in an Organized Health Care Education/Training Program
DX: Z12.31 Encounter for screening mammogram for malignant neoplasm of breast (principal)
CPT/HCPCS: 77063; 77067

== ENCOUNTER → 2021-07-24 07:47 | Outpatient (CLI) | payer MEDICARE, OTHER, SELFPAY ==
[2021-07-24 08:40] LABS: BUN Creatinine Ratio 17.1 (6-22); Blood Urea Nitrogen 12 mg/dL (7-17); Calcium 9.2 mg/dL (8.4-10.2); Carbon Dioxide 30 mmol/L (22-32); Chloride 105 mmol/L (98-107); Estimated Glomerular Filt Rate > 60.0 mL/min (>60); Glucose 94 mg/dL (80-110); HEMOLYSIS < 15 (0-50); Magnesium 1.9 mg/dL (1.6-2.3); Potassium 3.7 mmol/L (3.4-5.1); Sodium 140 mmol/L (137-145)
[2021-07-24 08:57] LABS: Free T4, Direct Thyroxine 1.41 ng/dL (0.78-2.19)
[2021-07-24 09:11] LABS: Thyroid Stimulating Hormone 0.744 uIU/mL (0.47-4.68)
== END ==
PROVIDERS: Family Provider Family Medicine; PCP Student in an Organized Health Care Education/Training Program; Referring Provider Internal Medicine Cardiovascular Disease; Visit Provider Internal Medicine Cardiovascular Disease
DX: I44.2 Atrioventricular block, complete (principal); I47.2 Ventricular tachycardia; R00.1 Bradycardia, unspecified
CPT/HCPCS: 36415; 80048; 83735; 84439; 84443

== ENCOUNTER → 2021-08-16 09:05 | Outpatient (CLI) | payer MEDICARE, OTHER, SELFPAY ==
--- NOTE | 2021-08-16 | DI.ECHO.S_ITS ---
[place] +---------+ [facility] +---------+ : : [address] : : : : [id number] : : : : Phone: [phone] : : [phone] +---------+ Echocardiogram Report + + :Name: YUNIOR HALL Study Date: 08/16/2021 Height: 71 in : :[facility] ReadingLocation: Weight: 200 lb : : Gender: Female BSA: 2.1 m2 : :: 1945 Age: 75 yrs BP: 156/77 mmHg: :Reason For Study: AV BLOCK : :Ordering Physician: CORETTA, : :YEN Dominguez Performed By: Phuc Mcnael : :Referring: YEN HITCHCOCK : + + Interpretation Summary The left ventricle is normal in size. The ejection fraction is estimated to be 55-60%. There has been no significant change in LVEF since the previous exam. The right ventricle is normal in size and function. There is a pacemaker lead in the right ventricle. No significant valvular pathology seen. The IVC is of normal diameter and collapses greater than 50% with a sniff. This suggests a low right atrial pressure of 3 mm Hg. Procedure: A two-dimensional transthoracic echocardiogram with color flow and Doppler was performed. The study quality was technically adequate. There is no prior echocardiogram noted for this patient. The patient has a paced rhythm. Left Ventricle: The left ventricle is normal in size. Proximal septal thickening is noted. There is no echo evidence for significant left ventricular outflow tract obstruction. There is no thrombus. Left ventricular systolic function is normal. The ejection fraction is estimated to be 55-60%. There has been no significant change since the previous exam. Septal motion is consistent with conduction abnormality. MV E/A: 0.77 Med Peak E' Duglas: 2.9 cm/sec E/E' med: 22.1. Right Ventricle: The right ventricle is normal in size and function. There is a pacemaker lead in the right ventricle. Atria: Both atria are mildly dilated. Both atria have mildly increased in size since the prior echo exam. The right atrium is normal in size. There is no Doppler evidence for an interatrial shunt. Mitral Valve: There is mild mitral annular calcification. There is mild mitral regurgitation. Compared to the prior echo study, there has been no change in the severity of mitral regurgitation. Aortic Valve: The aortic valve is normal in structure and function. The aortic valve is trileaflet. There is no aortic valve stenosis. No aortic regurgitation is present. Tricuspid Valve: The tricuspid valve is normal in structure and function. There is mild tricuspid regurgitation. The right ventricular systolic pressure is estimated to be at least 28 mmHg based on an estimated right atrial pressure of 3 mm Hg. Compared to the prior echo exam, there has been no change in TR severity. Pulmonic Valve: The pulmonic valve is not well seen, but is grossly normal. There is no pulmonic valvular regurgitation. Great Vessels: The aortic root is normal size. The dimensions of the ascending aorta are normal. The IVC is of normal diameter and collapses greater than 50% with a sniff. This suggests a low right atrial pressure of 3 mm Hg. Pericardium/ Pleura There is no pericardial effusion. There is no pleural effusion. MMode/2D Measurements & Calculations LVIDd: 4.8 cm LVOT diam: 2.0 cm LVIDs: 3.2 cm Ao root diam: 3.2 cm FS: 34.2 % asc Aorta Diam: 3.1 cm IVSd: 1.0 cm LVPWd: 1.0 cm LV hines. diameter/BSA (cm/m^2): 2.3 LV sys. diameter/BSA (cm/m^2): 1.5 LA A2 area: 19.8 cm2 RA long axis: 4.7 cm LA A4 area: 22.9 cm2 RA area: 13.5 cm2 LA length (vol): 5.1 cm RA vol: 33.0 ml LA vol: 74.6 ml RA : 15.7 ml/m2 LA vol index: 35.4 ml/m2 IVC diam: 1.5 cm TAPSE: 2.0 cm Doppler Measurements & Calculations Ao V2 max: 126.4 cm/sec LVOT Max Duglas: 104.1 cm/sec Ao V2 mean: 91.6 cm/sec LV V1 max P.3 mmHg Ao max P.4 mmHg LV V1 VTI: 21.4 cm Ao mean P.7 mmHg LAITH(I,D): 2.8 cm2 Ao V2 VTI: 23.5 cm LAITH(V,D): 2.5 cm2 sev ratio: 0.91 LAITH indexed to BSA (cm^2/m^2): 1.3 MV E max duglas: 63.3 cm/sec TR max duglas: 247.4 cm/sec MV A max duglas: 81.9 cm/sec TR max P.5 mmHg MV E/A: 0.77 Med Peak E' Duglas: 2.9 cm/sec E/E' med: 22.1 Lat Peak E' Duglas: 6.0 cm/sec E/E' lat: 10.5 E/e' average: 16.3 MV dec time: 0.25 sec SV(LVOT): 64.9 ml Reading Physician:03:47 PM
--- NOTE | 2021-08-16 | DI.NM.S_ITS ---
PROCEDURE: NM SHANICE PERF SPECT R&S PHARM Rest and pharmacological stress myocardial perfusion SPECT with gated imaging and ejection fraction RADIOPHARMACEUTICAL: 24.9 mCi Tc-99m tetrafosmin IV at rest and 26.5 mCi Tc-99m tetrafosmin IV at peak effect of pharmacological stress. [id number] was performed. INDICATIONS: Atrioventricular block, complete TECHNIQUE: Radiopharmaceutical was injected at peak stress test, and also at rest. SPECT images were obtained. SPECT myocardial perfusion images were displayed in short axis, horizontal long axis, and vertical long axis views. Gated images were reviewed using Everypoint software. COMPARISON: None. CARDIAC STRESS: A pharmacologic stress test was performed under the supervision of an attending staff, using an infusion of lexican 0.4mg IV X1. Hemodynamic data: There is normal blood pressure and heart rate response to pharmacologic stress. Symptoms: The patient denied anginal chest pain. Aminophylline: none EKG: Resting ECG shows sinus rhythm with PACs and LBBB. ECG non-diagnostic due to baseline LBBB; no ectopy. FINDINGS: Raw data: There is good myocardial uptake of radiotracer. No significant motion artifacts. Aonp-oa-lldlg ratio is 0.22 (normal is less than 0.38 for tetrafosmin tracer). Left ventricle function: Gated images demonstrate normal left ventricular wall thickening. No segmental wall motion abnormalities. No transient ischemic dilation; TID is 1.02 (normal less than 1.3). Left ventricle resting end diastolic volume is 105 mL. Left ventricle stress ejection fraction is 76%; normal range is above 45%. Myocardial perfusion: There is normal distribution of activity in the right and left ventricular myocardium. No fixed or reversible perfusion defects. IMPRESSION: Low risk, normal pharmaceutical nuclear stress test 1) No perfusion evidence of ischemia or infarction. 2) Normal left ventricular size and systolic function (EF post stress 76%). 3) Non-diagnostic ECG due to baseline LBBB. 4) No angina during the study. 5) Compared to the nuclear stress test done 04/15/2016, no significant change. Dictated by: Mitch Phillips MD on 08/19/2021 at 12:50 Approved by: Mitch Phillips MD on 08/19/2021 at 12:53
== END ==
PROVIDERS: Family Provider Family Medicine; PCP Student in an Organized Health Care Education/Training Program; Referring Provider Physician Assistant; Visit Provider Physician Assistant
DX: I08.1 Rheumatic disorders of both mitral and tricuspid valves (principal); I44.2 Atrioventricular block, complete; I47.2 Ventricular tachycardia; R00.1 Bradycardia, unspecified; Z95.0 Presence of cardiac pacemaker
CPT/HCPCS: 78452; 93017; 93306; A9502; J2785

== ENCOUNTER → 2022-06-23 07:52 | Outpatient (CLI) | payer MEDICARE, OTHER, SELFPAY ==
[2022-06-23 09:59] LABS: Free T4, Direct Thyroxine 1.44 ng/dL (0.78-2.19)
[2022-06-23 10:13] LABS: Thyroid Stimulating Hormone 0.533 uIU/mL (0.47-4.68)
== END ==
PROVIDERS: Family Provider Family Medicine; PCP Student in an Organized Health Care Education/Training Program; Referring Provider Internal Medicine Cardiovascular Disease; Visit Provider Internal Medicine Cardiovascular Disease
DX: I47.2 Ventricular tachycardia (principal); R00.1 Bradycardia, unspecified; I44.2 Atrioventricular block, complete
CPT/HCPCS: 36415; 83735; 84439; 84443

== ENCOUNTER → 2022-10-28 09:34 | Outpatient (CLI) | payer MEDICARE, OTHER, SELFPAY ==
[2022-10-28 10:41] LABS: Add Manual Diff / Slide Review NO; Basophils Absolute Auto 0 /uL (0-100); Basophils Percent Auto 0.6 % (0-2); Eosinophils Absolute Auto 200 /uL (0-450); Eosinophils Percent Auto 2.8 % (2-4); Hematocrit 39.1 % (36-46); Lymphocytes Absolute Auto 1300 /uL (1100-4500); Lymphocytes Percent Auto 21.5 % (25-40); Mean Corpuscular HGB Conc 33.4 % (30-36); Mean Corpuscular Hemoglobin 29.7 PG (26-34); Monocytes Absolute Auto 400 /uL (0-900); Monocytes Percent Auto 6.1 % (3-14); Neutrophils Absolute Auto 4200 /uL (1500-7000); Platelet Count 192 X10^3/uL (150-400); Red Blood Cell Count 4.39 X10^6/uL (4.0-5.2); Red Cell Distribution Width 13.5 % (11.6-14.8)
[2022-10-28 10:45] LABS: Hemoglobin A1C% w Est Avg Glu 5.5 % (4.0-6.0)
[2022-10-28 11:01] LABS: Appearance Urine UA CLEAR; Bilirubin Urine UA NEGATIVE (NEGATIVE); Color Urine UA YELLOW; Glucose Urine UA NEGATIVE (Negative); Ketones Urine UA NEGATIVE (NEGATIVE); Leukocyte Esterase Urine UA 1+ (NEGATIVE); Nitrite Urine UA NEGATIVE (Negative); Occult Blood Urine UA NEGATIVE (Negative); Protein Urine UA NEGATIVE (Negative); Specific Gravity Urine UA <=1.005 (1.000-1.035); Urobilinogen Urine UA 0.2 E.U./dL (0.2)
[2022-10-28 11:06] LABS: Bacteria Urine Occasional (0-1); Culture Indicated Urine Specimen Cultured; RBC Urine None Seen (0-5/HPF); Squamous Epithelial Cell Urine 0-1 /HPF (0-5/HPF); WBC Urine 0-1/HPF (0-5/HPF)
[2022-10-28 11:13] LABS: BUN Creatinine Ratio 16.9 (6-22); Blood Urea Nitrogen 13 mg/dL (7-17); Calcium 9.1 mg/dL (8.4-10.2); Carbon Dioxide 29 mmol/L (22-32); Chloride 103 mmol/L (98-107); Estimated Glomerular Filt Rate > 60 mL/min (>60); Glucose 104 mg/dL (80-110); HEMOLYSIS < 15 (0-50); Potassium 4.2 mmol/L (3.4-5.1); Sodium 139 mmol/L (137-145)
== END ==
PROVIDERS: Family Provider Family Medicine; PCP Student in an Organized Health Care Education/Training Program; Referring Provider Orthopaedic Surgery; Visit Provider Orthopaedic Surgery
DX: Z01.818 Encounter for other preprocedural examination (principal); R73.9 Hyperglycemia, unspecified; Z01.812 Encounter for preprocedural laboratory examination; N39.0 Urinary tract infection, site not specified
CPT/HCPCS: 36415; 80048; 81001; 83036; 85025; 87086; 93005; 93010

== ENCOUNTER → 2022-11-24 11:13 | Outpatient (CLI) | payer MEDICARE, OTHER, SELFPAY ==
[2022-11-24 12:38] LABS: COVID19 -Nasal RAPID Negative (Negative)
== END ==
PROVIDERS: Family Provider Family Medicine; PCP Student in an Organized Health Care Education/Training Program; Referring Provider Orthopaedic Surgery; Visit Provider Orthopaedic Surgery
DX: Z20.822 Contact with and (suspected) exposure to COVID-19 (principal)
CPT/HCPCS: 87635; C9803

== ENCOUNTER 2022-11-25 06:23 | Day surgery (SDC) | payer MEDICARE, OTHER, SELFPAY ==
[2022-11-14 09:04] VITALS: BMI 25.5
[2022-11-25] VITALS (15 sets, daily range): BP systolic 95–141; BP diastolic 48–78; PULSE 60–82; RESP 12–20; TEMP 36–36.4; O2SAT 94–99; BMI 24.7
--- NOTE | 2022-11-25 06:44 | DI.RAD.S_ITS ---
PROCEDURE: XR KNEE RT 1TO2V INDICATIONS: prosthesis placement TECHNIQUE: 2 view(s) of the knee acquired. COMPARISON: [facility], CR, XR KNEE ARTHRITIC SERIES BI, 08/07/2022, 10:18. [facility], , KNEE 3V LEFT, 01/09/2011, 10:45. [facility], , KNEE 3V RIGHT, 01/09/2011, 10:45. FINDINGS: Bones: Patient is status post knee joint arthroplasty. Hardware components are in expected positions. Visualized bony structures are intact. Soft tissues: Overlying postoperative changes are noted. IMPRESSION: Postsurgical changes from right knee arthroplasty. Dictated by: Jeremy Uribe M.D. on 11/26/2022 at 10:36 Approved by: Jeremy Uribe M.D. on 11/26/2022 at 10:39
[2022-11-25] MEDS: VANCOMYCIN 1,000 MG/200 ML PIGGYBACK 200 MG IV (06:54)
[2022-11-25] MEDS: PREGABALIN 75 MG CAPSULE PO (06:59)
[2022-11-25] MEDS: ACETAMINOPHEN 325 MG TABLET 975 MG PO (07:00)
[2022-11-25] MEDS: LACTATED RINGERS 1,000 ML 42 ML IV ×2 (07:13→09:59)
--- NOTE | 2022-11-25 07:33 | P.OP_ITS ---
Operative Date/Time/Diagnoses Date of procedure: 11/25/22 Time of procedure: 07:55 Pre-op diagnosis: Right knee OA Post-op diagnosis: same Procedure & Clinicians Procedure: Right total knee arthroplasty Same procedure as scheduled: Yes Indications: The patient has had progressively worsening right knee pain with radiographic changes consistent with arthritis. Non-operative management has failed and the patient has requested total knee replacement. The risks, benefits and alternatives to surgery were discussed with the patient prior to proceeding. Risks discussed included, but were not limited to, failure to relieve pain, stiffness, infection, nerve damage, deep venous thrombosis, pulmonary embolism, stroke, coma, heart attack, permanent paralysis and , as well as the potential need for eventual revision of the prosthetic. Surgeon: Ashley Reyez Ad Terminal Makeup Operator: Dianne Piña Anesthesia Type: General Operative Notes Findings: Severe right knee osteoarthritis, good stability, good range of motion, soft bone Closure Type: primary Specimen(s): none sent Prosthetic devices, grafts, tissues, transplants, or devices: Reyez [employer] Nephew Journey BCS 2 size 7 femur, size 6 tibia, +10 poly, 35 x 7-1/2 mm patella Estimated Blood Loss (mL): 250 Blood products transfused: none Tourniquet time (min): 88 Procedure in detail: The patient was seen in the pre-operative area, where the patient identified the right knee as the operative site and this was marked with my initials. The patient received pre-operative antibiotics, and was taken to the operating room and placed on the operative table in the supine position. After satisfactory anesthesia, a full stack developer out was performed. The right leg was encircled with a tourniquet about the proximal thigh, and the leg was prepared from the toes to the tourniquet with ChloroPrep in the usual fashion and draped through sterile drapes. The leg was elevated and exsanguinated with Eschmark bandage and the tourniquet inflated to [250] mmHg pressure. The knee was approached through an approximately 18 cm incision centered over the patella and carried into the knee through a medial parapatellar arthrotomy. A portion of the medial and lateral meniscus was resected. Soft tissue was carefully mobilized around the patella the patella was measured with a caliper. Bone was resected from the patella and the patellar height was reconstituted with up an appropriate sized patellar component. A cover was then placed on the patella. A small amount of additional medial and lateral meniscus was resected. The distal femur was cut at 5?. A [+2] cut was used. It looked like an appropriate distal femoral cut and the cut was made without difficulty. An extramedullary guide was used for the tibial cut. 10 mm was resected off the le ast affected side. The patient was placed in extension residual medial and lateral meniscus as well as any residual bone was carefully resected. [2 mm] additional tibia was resected. Hemostasis was achieved especially posteriorly. Additional local was injected into the posterior capsule. The extension gap was assessed and additional releases for gap balancing were performed as necessary. It was checked with the gap coffee maker. The rotation was assessed and the appropriate size femoral guide was placed on the distal femur and finishing cuts were made. There was no evidence of notching. The anterior, posterior and chamfer cuts were then made. The posterior osteophytes and soft tissues were then removed. The posterior capsule was injected with part of a mixture of 60 ml 0.25% Marcaine mixed with 20 ml Exparel for post operative pain control. The remainder of this mixture was injected into the capsule and subcutaneous tissues during cementing. The femoral component was placed and the notch was finished. The tibial and femoral components were then placed and the knee placed through a range of motion. Range of motion was [0-130], with good stability throughout the range. The trials were then removed, and the tibia was finished. The bone was prepared with pulsatile lavage, and dried with a sponge. Cement was applied and the final prosthetics placed. Excess cement was removed during and after cement curing. A brief Betadine soak was performed. After confirming there was no extruded cement posteriorly, the final tibial insert was placed. The knee was copiously irrigated and the tourniquet deflated. Hemostasis was obtained with the Bovie cautery. The capsule was closed with interrupted nonabsorbable suture. The subcutaneous layer was closed with barbed sutures, and the skin with a running 3-0 V-Lock suture and Surgical glue. An Aquacel Ag dressing was applied and the patient was taken to recovery having tolerated the procedure well. Complications: none Post-operative Condition: stable Disposition: Acute Care Plan for aftercare: The patient will be maintained on a standard total knee replacement protocol with weight bearing as tolerated. The patient will receive aspirin and sequential compression devices for DVT prophylaxis. The patient will be discharged home when safe for the home environment.
--- NOTE | 2022-11-25 07:33 | PM.PREOP ---
Pre-operative Note COVID-19 COVID-19 status: Negative Interval Note History & Physical reviewed/Exam performed by Physician: Yes Changes to H&P: No
[2022-11-25] MEDS: MELOXICAM 7.5 MG TABLET 15 MG PO (07:37)
[2022-11-25] MEDS: CEFAZOLIN 2 GM/100 ML PREMIX 100 ML IV ×3 (08:00→23:38)
[2022-11-25] MEDS: TRANEXAMIC ACID 1,000 MG VIAL 1000 MG INJ ×2 (08:05→09:50)
--- NOTE | 2022-11-25 08:34 | SUR.OPER ---
Supine on padded OR bed. Pillow under head, arms secured on padded armboards <90 degree abduction. Safety belt across torso. Non-operative leg secured with tape over blanket over lower leg. Operative leg secured in DeMayo positioner. Foam padded brace at thigh of operative leg.
[2022-11-25] MEDS: BUPIVACAINE LIPOSOME 266 MG/20 ML VIAL INJ (08:43)
[2022-11-25] MEDS: BUPIVACAINE 0.5% W/ EPI (PF) 30 ML VIAL INJ (08:44)
--- NOTE | 2022-11-25 11:26 | SUR.PHASEI ---
transfered to 219 with Larry LAM 1 belonging bag and eye glasses with patient
[2022-11-25] MEDS: LACTATED RINGERS 1,000 ML 100 ML IV ×2 (11:39→21:17)
[2022-11-25] MEDS: IBUPROFEN 400 MG TABLET PO ×3 (12:25→21:08)
[2022-11-25] MEDS: ACETAMINOPHEN 325 MG TABLET 650 MG PO ×2 (12:25→17:52)
--- NOTE | 2022-11-25 14:10 | PT.IIE ---
Current Diagnoses Unilateral primary osteoarthritis, right knee (11/25/22) Surgery Performed Operation Date: 11/25/22 07:45 Actual Procedures p Total Knee Arthroplasty(Right) - Ashley Reyez MD Surgical History (Last Updated 11/12/22 @ 14:07 by Janay Huber, RN) Anesthesia History of cardiac radiofrequency ablation (RFA) (2015) History of gynecologic surgery (~1979) History of shoulder surgery (1978) History of sinus surgery (~1979) Hx of tonsillectomy Status post cholecystectomy (1993) Status post hysterectomy (1988) Status post surgical removal of neoplasm of skin (2007) Medical History (Last Updated 11/12/22 @ 14:10 by Janay Huber RN) Atrial flutter (03/2016) Chicken pox (~1949) Chronic sinusitis Depression Dyslexia (1945) Fibroids (~1979) Foot pain (2004) Frozen shoulder (1978) Hayfever (~1959) History of heavy periods (~1979) Infertility (1977) Measles (~1949) Mumps (~1949) Osteoarthritis Osteopenia Osteoporosis (2012) Pacemaker (~2017) Painful menstrual periods (~195) PTSD (post-traumatic stress disorder) Recurrent sinusitis (~1969) Vertigo Vulvar intraepithelial neoplasia (ERIC) (2007) Physical Therapy Inpatient Evaluation/Re-Eval M1 PT/OT-IP Prior Functional Status Start: 11/25/22 15:45 Freq: NEEDED Status: Active Protocol: Document 11/25/22 14:10 AB (Rec: 11/25/22 16:02 [id number]) Medical Review Prior Functional Status Medical History Reviewed Yes Communication able to make needs known Mobility and Gait pt stated that she is modified independent with all mobilities and ambulation withou tAD but occasionally uses her hurrycane Social History Household Members none Living Arrangements House Number of Floors (Floors) Two Floors Number of Stairs To Enter/Railing? pt stays on main level of the house 2 steps wide bilateral rails to enter the house Home Environment High Toilet Home Equipment Four Wheel Walker,Straight Cane,Tub Transfer Bench,Hand Held Shower,Grab Bars Near Toilet,Grab Bars In Shower Additional Social History Comment pt's sister will be staying with pt until pt is able to drive (per sister) M2 PT-IP Current Condition Start: 11/25/22 15:45 Freq: NEEDED Status: Active Protocol: Document 11/25/22 14:10 AB (Rec: 11/25/22 16:02 AB [id number]) Physical Therapy Current Condition Current Condition Evaluation Date 11/25/22 Treatment Diagnosis s/p R TKA ; difficulty in walking Onset Date 11/25/22 M3 PT-IP Subjective Start: 11/25/22 15:45 Freq: NEEDED Status: Active Protocol: Document 11/25/22 14:10 AB (Rec: 11/25/22 16:02 AB [id number]) Subjective Physical Therapy Visit Type Type Initial Evaluation Visit Start Time 14:10 Visit Stop Time 15:10 Total Visit Minutes 60 Number of ASSOCIATE PROFESSOR OF THEATRE Visits 0 Physical Therapy Visit Comments Patient Comments agreeable to do PT Therapy Pain Assessment Pain Present Pain Present Denied Pain M4 PT-IP Mobility and Gait Start: 11/25/22 15:45 Freq: NEEDED Status: Active Protocol: Document 11/25/22 14:10 AB (Rec: 11/25/22 16:02 AB [id number]) PT-Bed Mobility Assessment Supine to Sit Supine to Sit Standby Assistance PT-Transfer Assessment Sit to and From Stand Sit to and from Stand Contact Guard Assistance, Minimal Assistance,1 Person Assistance,Use of Upper Extremities Equipment Transfer Assistive Device Gait Belt,Front Wheeled Walker Orthotic/Prosthetic Devices or Brace: No Transfers Transfer Destination Bedside Commode Transfer Technique Stand Step Pivot Transfer Ability Level of Assist Contact Guard Assistance, Minimal Assistance,1 Person Assistance,Use of Upper Extremities Comments Mobility Comments informed pt regarding possible need for FWW. sister in room and agreed to borrow one for pt. informed soroptomist's hours and pt's sister will get a FWW for pt today. set up caregiver training tomorrow at 9 AM. BP in supine: 130/57. completed supine to sit SBA. pt able to sit on EOB SBA. pt gown is wet. pt stated that she is still numb on her butt. completed sit to stand CGA to min A . attempted to ambulate to the toilet but pt is leaking and instructed to sit back down on EOB. positioned bedside commode next to pt. completed sit to stand CGA and step transfer to bedside commode min A using FWW. assisted pt with hygiene care, brief change, gown change. completed sit to stand from bedside commode CGA and ambulated to gisele ~ 3 ft using FWW CGA to min A. pt agreed to ambulate more in room and completed ~ 60 ft using FWW CGA to min A. pt agreed to sit up on the chair. positioned on the chair. call light and table placed within reach. Gait Assessment Gait Gait Assistance Required: Contact Guard Assist,Minimum Assistance,1 Person Assist Distance (Feet) 60 Able to Maintain Weight Bearing Status Yes During Gait Assistive Devices Assistive Device Gait Belt,Front Wheeled Walker Orthotic/Prosthetic Devices or Brace: No Gait Deviations General Gait Pattern Decreased Stride Length, Decreased Feet Clearance Factors Limiting Gait Function Factors Limiting Gait Function Decreased Activity Tolerance, Decreased Sensation,Decreased Strength,Difficulty Following Directions,Limited Range of Motion,Pain,Poor Balance,Poor Safety Awareness PT-Balance Assessment Sitting Balance and Reactions Static Sitting Balance Ability Normal Dynamic Sitting Balance Ability Good Standing Balance and Reactions Static Standing Balance Ability Fair Dynamic Standing Balance Ability Fair Device Used FWW M5 PT-IP Objective Assessments Start: 11/25/22 15:45 Freq: NEEDED Status: Active Protocol: Document 11/25/22 14:10 AB (Rec: 11/25/22 16:02 [email or web address]) Orientation Orientation/Cognition Level of Alertness Alert Orientation Name,Place,Situation Language Function Ability No Deficits Noted Safety Awareness Understands Safety Issues Memory Description No Deficits Noted Gross Range of Motion Lower Extremity ROM Impairments R knee flexion: ~ 90 deg R knee extension: ~ 20 deg less to 0 Strength Lower Extremity Strength Assessment Right Impaired Hip 4-/5 Knee 3+/5 Sensation Assessment Sensation Sensation Description Numbness Comments Sensation Comments pt c/o numbness on buttocks Muscle Tone Muscle Tone WNL Yes M6 PT-IP Treatment Start: 11/25/22 15:45 Freq: NEEDED Status: Active Protocol: Document 11/25/22 14:10 AB (Rec: 11/25/22 16:02 AB [email or web address]) Physical Therapy Treatment Education Education Provided Precautions,Weight Bearing Status,Post-Op Packet,Safety M7 PT-IP Assessment and Plan Start: 11/25/22 15:45 Freq: NEEDED Status: Active Protocol: Document 11/25/22 14:10 AB (Rec: 11/25/22 16:02 AB [email or web address]) PT Summary Assessment and Plan Potential Rehabilitation Potential Fair Status of Condition at Evaluation Evolving Summary Impairments Pain,ROM,Strength,Balance, Coordination,Sensation,Tone, Cognition,Bed Mobility, Transfers,Gait,Activity Tolerance Assessment Summary pt requiring CGA to min A with mobility using FWW. pt plans to go home and her sister will stay with her and assist her. caregiver training set up at 9 am tomorrow. will continue to assess progress. Goals Bed Mobility Goal Independent Transfer Goal Independent,Front Wheeled Walker,Four Wheeled Walker Gait Goal Independent,Front Wheel Walker ,Four Wheel Walker Gait Distance 200 Other Goals up/down 2 steps 1 rail SBA Days to Meet Goals 5 Frequency of Treatment Frequency Of Treatment Twice a Day Treatment Plan Physical Therapy Treatment Plan Bed Mobility Training,Transfer Training,Gait Training, Therapeutic Exercise,Balance Retraining,Post Op Education, Discharge Planning,Hot or Cold Pack,Neuromuscular Re-ed, Coordination Retraining,Manual Therapy Weight Bearing Status Weight Bearing Status Weight Bear as Tolerated Allowed Weight Bearing Amount (enter % RLE WBAT or #) (%) Recommendations To Nursing Amount of Assist Needed 1 Person Assist Discharge Recommendations PT Discharge Recommendations Home with Assistance, Outpatient PT Equipment Needed for Home Before FWW Discharge Transportation Needs at Discharge Private Vehicle
[2022-11-25] MEDS: ASPIRIN EC 81 MG TABLET PO (21:07)
[2022-11-25] MEDS: ATORVASTATIN 20 MG TABLET 10 MG PO (21:08)
[2022-11-25] MEDS: DOCUSATE 100 MG CAPSULE PO (21:09)
[2022-11-26] VITALS: BP 145/61; PULSE 71; RESP 18; TEMP 36; O2SAT 96
[2022-11-26] MEDS: IBUPROFEN 400 MG TABLET PO ×3 (00:24→10:00)
[2022-11-26 04:00] VITALS: BP 125/61; PULSE 69; RESP 19; TEMP 36.2; O2SAT 96
[2022-11-26] MEDS: ACETAMINOPHEN 325 MG TABLET 650 MG PO (05:58)
--- NOTE | 2022-11-26 06:45 | P.DS_ITS ---
History of Present Illness History of Present Illness Date Patient Seen: 11/26/22 Time Patient Seen: 06:45 Chief complaint: Right TKA Narrative: Operative Date/Time/Diagnoses Date of procedure: 11/25/22 Time of procedure: 07:55 Pre-op diagnosis: Right knee OA Post-op diagnosis: same Procedure & Clinicians Procedure: Right total knee arthroplasty Same procedure as scheduled: Yes Indications: The patient has had progressively worsening right knee pain with radiographic changes consistent with arthritis. Non-operative management has failed and the patient has requested total knee replacement. The risks, benefits and alter natives to surgery were discussed with the patient prior to proceeding. Risks discussed included, but were not limited to, failure to relieve pain, stiffness, infection, nerve damage, deep venous thrombosis, pulmonary embolism, stroke, coma, heart attack, permanent paralysis and , as well as the potential need for eventual revision of the prosthetic. Surgeon: Ashley Reyez Certified Tumor Registrar: Dianne Piña Anesthesia Type: General Operative Notes Findings: Severe right knee osteoarthritis, good stability, good range of motion, soft bone Closure Type: primary Specimen(s): none sent Prosthetic devices, grafts, tissues, transplants, or devices: Re[employer] Nephew Journey BCS 2 size 7 femur, size 6 tibia, +10 poly, 35 x 7-1/2 mm patella Estimated Blood Loss (mL): 250 Blood products transfused: none Tourniquet time (min): 88 Discharge Providers Provider Discharge Date: 11/26/22 Primary care physician: Jacobo Day MD Consults: 11/12/22 14:39 Consult to Anesthesiology Routine Comment: Consulting Provider: Anesthesiologist Reason for consultation: Surgeon requested re: Cardiac history 11/25/22 06:44 Consult to Anesthesiology Routine Comment: Consulting Provider: Anesthesiologist Reason for consultation: Regional block for post operative pain control 11/25/22 11:25 Consult to Discharge Planning Routine Comment: Consult to Physical Therapy Evaluate & Treat Comment: Physician Instructions: postop TKA protocol Discharge provider: Belkys Gates PA-C Summary Hospital Course Discharge Diagnosis: Right knee osteoarthritis, s/p right total knee arthroplasty. Hospital Course: Ms Anya Reed's hospital course was unremarkable. On POD# 1 she was feeling well and wanted to go home. She was eating and voiding without difficulty and her pain was well-controlled with oral medications. She was evaluated by PT and felt to be safe for d/c home w/ outpt PT. Exam Vital Signs (past 8 hours): - 11/26/22 00:00 11/26/22 04:00 Temperature 96.8 F L 97.2 F L Pulse Rate 71 69 Respiratory Rate 18 19 Blood Pressure 145/61 H 125/61 Pulse Oximetry 96 96 Oxygen Flow Rate 0 0 Oxygen Delivery Method Room Air Oxygen Flow Rate 0 Narrative Exam Narrative: 5/5 strength in hip flexors, quadriceps, hamstrings, DF, PF, EHL on right. Sensation to light touch intact throughout RLE. Calf soft, compressible, nontender and without palpable cords or masses. Aquacel dressing CDI. [facility] Medical History (Updated 11/12/22 @ 14:10 by Janay Huber RN) Atrial flutter (03/2016) Chicken pox (~1949) Chronic sinusitis Depression Dyslexia (194) Fibroids (~1979) Foot pain (2004) Frozen shoulder (1978) Hayfever (~1959) History of heavy periods (~1979) Infertility (1977) Measles (~1949) Mumps (~1949) Osteoarthritis Osteopenia Osteoporosis (2012) Pacemaker (~2017) Painful menstrual periods (~1958) PTSD (post-traumatic stress disorder) Recurrent sinusitis (~1969) Vertigo Vulvar intraepithelial neoplasia (ERIC) (2007) Surgical History (Updated 11/26/22 @ 06:50 by Belkys Gates PA-C) Anesthesia History of cardiac radiofrequency ablation (RFA) (2015) History of gynecologic surgery (~1979) History of shoulder surgery (1978) History of sinus surgery (~1979) Hx of tonsillectomy Status post cholecystectomy (1993) Status post hysterectomy (1988) Status post surgical removal of neoplasm of skin (2007) Family History Father Heart disease Hypolipidemia Grandfather Stroke Grandmother Heart disease Mother Heart block Heart disease Grandfather Cancer Grandmother Stroke Sister Age: 71 Uterine cancer Sister No problems noted. Sister No problems noted. Social History household members: none Smoking Status: Never smoker alcohol intake: former Discharge Assessment & Plan Assessment and Plan Assessment: Right knee osteoarthritis, s/p right total knee arthroplasty. Plan of Treatment: D/C home, multimodal pain control, ASA 81 mg BID x 6 weeks for VTE prophylaxis, outpt PT, f/u in office in 2 weeks. Discharge Plan Discharge Plan Patient Disposition: Home Discharge orders & Medications Discharge Orders: Discharge (Order); Ordered 11/26/22 Ordered By: Belkys Gates Prescriptions: New oxycodone 5 mg Tablet 5 mg PO Q4H PRN (Reason: Pain, Moderate (4-6)) Qty: 60 0RF aspirin 81 mg Tablet,Delayed Release (Dr/Ec) 81 mg PO BID Qty: 90 0RF acetaminophen 325 mg Tablet 650 mg PO Q6HR Qty: 240 0RF docusate sodium 100 mg Capsule 100 mg PO BID PRN (Reason: constipation) Qty: 60 1RF ibuprofen 400 mg Tablet 400 mg PO Q4HR Qty: 120 0RF Continued multivitamin Tablet 1 tab PO DAILY Qty: 0 diltiazem HCl 120 mg capsule,extended release 24hr 120 mg PO DAILY atorvastatin [Lipitor] 10 mg tablet 10 mg PO BEDTIME Qty: 90 2RF Follow up/Referrals: Jacobo Day MD [Primary Care Provider] - Ashley Reyez MD [Physician] - As previously scheduled (Follow up with Vishal Sanders PA-C, on 12/11/2022 @ 2:10 pm at [facility] in [place].) Diet/Activity/Treatments Diet: Diet as Tolerated Activity: Walk frequently! Cold/Heat Therapy: Ice to knee as needed for pain. Skin/Wound/Dressing Care Report to your healthcare provider any signs of infection, such as:: chills, fever, night sweats, unusual drainage and unusual redness Dressing: May remove SOFY wrap and shower on 11/28/2022. Leave Aquacel dressing in place until follow up in office. No bathing or otherwise soaking incision. Call the office if dressing becomes saturated inside. Visit Report/Discharge Packet Stand Alone Forms: Surgery Discharge Discharge Data Primary Care Provider: Jacobo Day Attending Provider: Ashley Reyez
[2022-11-26 07:09] LABS: Hematocrit 32.9 % (36-46); Hemoglobin 10.8 g/dL (12.0-16.0)
[2022-11-26 08:00] VITALS: BP 118/53; PULSE 69; RESP 18; TEMP 37.6; O2SAT 94
--- NOTE | 2022-11-26 09:58 | PT.IPTN ---
Current Diagnoses Unilateral primary osteoarthritis, right knee (11/25/22) Presence of unspecified artificial knee joint (11/25/22) Surgery Performed Operation Date: 11/25/22 07:45 Actual Procedures p Total Knee Arthroplasty(Right) - Ashley Reyez MD Physical Therapy Treatment Note M2 PT-IP Current Condition Start: 11/25/22 15:45 Freq: NEEDED Status: Discharge Protocol: Document 11/25/22 14:10 AB (Rec: 11/25/22 16:02 AB [email or web address]) Physical Therapy Current Condition Current Condition Evaluation Date 11/25/22 Treatment Diagnosis s/p R TKA ; difficulty in walking Onset Date 11/25/22 M3 PT-IP Subjective Start: 11/25/22 15:45 Freq: NEEDED Status: Discharge Protocol: Document 11/26/22 09:58 AB (Rec: 11/26/22 14:21 AB [email or web address]) Subjective Physical Therapy Visit Type Type Treatment Note Visit Start Time 09:58 Visit Stop Time 10:40 Total Visit Minutes 42 Notes checked on pt for 9 am caregiver training but pt stated that they just got their breakfast tray and wants to eat first. checked back on pt after ~ 1 hour. Number of WASHHOUSE HAND Visits 0 Physical Therapy Visit Comments Patient Comments agreed to do PT M4 PT-IP Mobility and Gait Start: 11/25/22 15:45 Freq: NEEDED Status: Discharge Protocol: Document 11/26/22 09:58 AB (Rec: 11/26/22 14:21 AB [email or web address]) PT-Bed Mobility Assessment Supine to Sit Supine to Sit Standby Assistance PT-Transfer Assessment Sit to and From Stand Sit to and from Stand Contact Guard Assistance,1 Person Assistance,Use of Upper Extremities Equipment Transfer Assistive Device Gait Belt,Front Wheeled Walker Orthotic/Prosthetic Devices or Brace: No Transfers Transfer Destination Chair Transfer Technique ambulated Transfer Ability Level of Assist Contact Guard Assistance,1 Person Assistance,Use of Upper Extremities Comments Mobility Comments pt's sister in room for caregiver training. pt's sister able to get a FWW for pt to use at home. pt completed supine to sit SBA . able to sit on EOB SBA. educated pt's sister on how to use safety belt and how to assist pt. sister was able to put safety belt on the and assisted pt with sit to tand from EOB CGA. ambualted pt in room using FWW ~ 30 ft and pt sat on chair. educated pt and sister regarding stair climbing techniques. pt completed sit to stand from the chair with sister assisting and ambulated pt in the hallway using FWW ~ 125 ft CGA. pt completed up/down steps holding on R rail with B hands CGA. pt completed another set but sister assisting and completed safely. pt ambulated back towards her room using FWW ~ 75 ft with sister assisting. assited pt back to her room. ambulated from w/c to chair using FWW CGA to min A. positioned pt on the chair. call light and table placed within reach. pt and sister without further concerns. Gait Assessment Gait Gait Assistance Required: Contact Guard Assist,1 Person Assist Distance (Feet) 125 Able to Maintain Weight Bearing Status Yes During Gait Assistive Devices Assistive Device Gait Belt,Front Wheeled Walker Orthotic/Prosthetic Devices or Brace: No Gait Deviations General Gait Pattern Antalgic,Decreased Stride Length,Decreased Feet Clearance,Step-to Gait Factors Limiting Gait Function Factors Limiting Gait Function Decreased Activity Tolerance, Decreased Strength,Limited Range of Motion,Pain,Poor Balance Stair Climbing Assessment Evaluation Level of Assist On Stairs Contact Guard Assistance, Minimal Assistance Devices Stair Climbing Assistive Devices Right Railing Technique/Endurance Stair Climbing Direction Ascend and Descend Stair Climbing Technique Step to Step Number of Steps Climbed 3 Stair Climbing Set # Repetitions (reps) 2 M5 PT-IP Objective Assessments Start: 11/25/22 15:45 Freq: NEEDED Status: Discharge Protocol: Document 11/25/22 14:10 AB (Rec: 11/25/22 16:02 AB [email or web address]) Orientation Orientation/Cognition Level of Alertness Alert Orientation Name,Place,Situation Language Function Ability No Deficits Noted Safety Awareness Understands Safety Issues Memory Description No Deficits Noted Gross Range of Motion Lower Extremity ROM Impairments R knee flexion: ~ 90 deg R knee extension: ~ 20 deg less to 0 Strength Lower Extremity Strength Assessment Right Impaired Hip 4-/5 Knee 3+/5 Sensation Assessment Sensation Sensation Description Numbness Comments Sensation Comments pt c/o numbness on buttocks Muscle Tone Muscle Tone WNL Yes M6 PT-IP Treatment Start: 11/25/22 15:45 Freq: NEEDED Status: Discharge Protocol: Document 11/26/22 09:58 AB (Rec: 11/26/22 14:21 AB [email or web address]) Physical Therapy Treatment Exercises Exercises Heel Slides Education Education Provided Precautions,Weight Bearing Status,Post-Op Packet,Safety M7 PT-IP Assessment and Plan Start: 11/25/22 15:45 Freq: NEEDED Status: Discharge Protocol: Document 11/26/22 09:58 AB (Rec: 11/26/22 14:21 AB [id number]) PT Summary Assessment and Plan Potential Rehabilitation Potential Fair Summary Impairments Pain,ROM,Strength,Balance, Coordination,Sensation,Tone, Cognition,Bed Mobility, Transfers,Gait,Activity Tolerance Progress Towards Goals Progressing Toward Goals Assessment Summary caregiver training completed and pt's sister able to assist pt safely. pt may go home when medically stable. Goals Bed Mobility Goal Independent Transfer Goal Independent,Front Wheeled Walker,Four Wheeled Walker Gait Goal Independent,Front Wheel Walker ,Four Wheel Walker Gait Distance 200 Other Goals up/down 2 steps 1 rail SBA Days to Meet Goals 5 Frequency of Treatment Frequency Of Treatment Twice a Day Treatment Plan Physical Therapy Treatment Plan Bed Mobility Training,Transfer Training,Gait Training, Therapeutic Exercise,Balance Retraining,Post Op Education, Discharge Planning,Hot or Cold Pack,Neuromuscular Re-ed, Coordination Retraining,Manual Therapy Weight Bearing Status Weight Bearing Status Weight Bear as Tolerated Allowed Weight Bearing Amount (enter % RLE WBAT or #) (%) Recommendations To Nursing Amount of Assist Needed 1 Person Assist Discharge Recommendations PT Discharge Recommendations Home with Assistance, Outpatient PT Transportation Needs at Discharge Private Vehicle
[2022-11-26] MEDS: DOCUSATE 100 MG CAPSULE PO (09:59)
[2022-11-26] MEDS: MULTIVITAMIN 1 TABLET 1 TAB PO (10:00)
[2022-11-26] MEDS: ASPIRIN EC 81 MG TABLET PO (10:00)
--- NOTE | 2022-11-26 11:29 | PC.NURSE ---
Assess- Patient is alert and oriented x4, she denies pain. Using tylenol and ibuprofen for discomfort. Dressing with aquacel cdi, ricardo wrap atop. Patient is going to dischargeg home now as she is doing working with physical therapy.
== END 2022-11-26 11:53 | disposition home or self-care (01) ==
LOC: OR 06:24 → AC 06:26
PROVIDERS: Family Provider Family Medicine; PCP Student in an Organized Health Care Education/Training Program; Referring Provider Orthopaedic Surgery; Visit Provider Orthopaedic Surgery
PROC: 0SRC0JZ Replacement of Right Knee Joint with Synthetic Substitute, Open Approach (ICD-10-PCS; CPT 27447; principal; 2022-11-25 07:45)
DX: M17.11 Unilateral primary osteoarthritis, right knee (principal)
CPT/HCPCS: 27447; 36415; 73560; 85014; 85018; 97162; 97530; C1776; C1713; C9290; J0690; J2250; J2704; J3010

== ENCOUNTER → 2023-07-10 10:09 | Outpatient (CLI) | payer MEDICARE, OTHER, SELFPAY ==
[2022-11-25 11:40] VITALS: BMI 24.7
--- NOTE | 2023-07-10 10:11 | DI.RAD.S_ITS ---
PROCEDURE: XR DEXA AXIAL SKELETON INDICATIONS: screen COMPARISON: [facility], CR, XR DEXA AXIAL SKELETON, 05/08/2021, 12:59. [facility], CR, XR DEXA AXIAL SKELETON, 08/19/2018, 14:08. FINDINGS: This blank DEXA report has been sent in error by the PACS system. The correct and complete report will be forthcoming in 1-2 days. Thank you for your patience and understanding. Dictated by: Ganesh Ji M.D. on 07/10/2023 at 13:07 Approved by: Ganesh Ji M.D. on 07/10/2023 at 13:07
--- NOTE | 2023-07-10 10:11 | DI.US.S_ITS ---
ULTRASOUND OF RIGHT BREAST: 07/10/2023 CLINICAL: Patient returns today to evaluate a focal asymmetry in the right breast. Comparison is made to exams dated: 07/10/2023 mammogram, 06/01/2021 mammogram, 09/08/2018 mammogram, 08/11/2017 ultrasound, 08/11/2017 mammogram, and 02/05/2017 ultrasound - [facility]. Color flow and real-time ultrasound of the right breast were performed. Bishop scale images of the real-time examination were reviewed. There is a possible 1 cm x 1 cm x 1.1 cm complicated cyst in the right breast central to the nipple in the retroareolar region. This correlates as an incidental finding. IMPRESSION: PROBABLY BENIGN The possible 1 cm x 1 cm x 1.1 cm complicated cyst in the right breast is probably benign. There is no abnormality seen in the right breast to correspond with the nipple abnormality, however, clinical correlation and clinical followup are recommended. A follow-up mammogram and an ultrasound in 6 months is recommended to demonstrate stability. This exam was interpreted at Station ID: [id number]. Electronically Signed By: Mino Tate M.D. lc/:07/10/2023 12:15:08 letter sent: Followup Recommended Ultrasound BI-RADS: 3 Probably benign
--- NOTE | 2023-07-10 10:12 | DI.MG.S_ITS ---
BILATERAL DIGITAL DIAGNOSTIC MAMMOGRAM 3D/2D: 07/10/2023 CLINICAL: Bilateral breast pain x's 2 weeks, sensitive to touch. No CBE. Due for Bilateral routine. Comparison is made to exams dated: 06/01/2021 mammogram, 09/08/2018 mammogram, and 08/11/2017 ultrasound - [facility]. Both breasts are heterogeneously dense, which may obscure small masses (category c / 51-75% glandular tissue). No significant masses, calcifications, or other findings are seen in either breast. IMPRESSION: INCOMPLETE: NEEDS ADDITIONAL IMAGING EVALUATION There is no abnormality seen in either breast to correspond with the nipple abnormality and pain, however, ultrasound is recommended. Based on the Tyrer Cuzick model (a risk assessment model) the patient's lifetime risk is 3.6% and her 10 year risk is 0.0%. According to the ACR, ACS, and NCCN guidelines, an annual breast MRI exam along with mammogram is recommended if the patient's lifetime risk is 20% or greater. This exam was interpreted at Station ID: [id number]. NOTE: For mammograms, a report in lay terms will be sent to the patient. Approximately 15% of breast malignancies will not be visualized mammographically. In the management of a palpable breast mass, a negative mammogram must not discourage biopsy of a clinically suspicious lesion. Electronically Signed By: Mino Tate M.D. lc/:07/10/2023 12:11:43 ACR BI-RADS Category 0: Incomplete [id number]
--- NOTE | 2023-07-10 11:13 | DI.US.S_ITS ---
Patient Name: YUNIOR ESCOBAR date: 1945 Sex: F Attending Physician: Eryn Indications: Date: 07/10/2023 12:13 At the request of: CARLY ORTA Procedure: US breast LT limited ULTRASOUND OF LEFT BREAST: 07/10/2023 CLINICAL: Patient returns today to evaluate a focal asymmetry in the left breast. Comparison is made to exams dated: 07/10/2023 mammogram, 06/01/2021 mammogram, 09/08/2018 mammogram, 08/11/2017 ultrasound, 08/11/2017 mammogram, and 02/05/2017 ultrasound - [facility]. Color flow and real-time ultrasound of the left breast were performed. Bishop scale images of the real-time examination were reviewed. There is a possible 0.5 cm x 0.5 cm x 0.4 cm complicated cyst in the left breast at 12 o'clock in the retroareolar region. This correlates as an incidental finding. Other small simple cysts are present, benign. IMPRESSION: PROBABLY BENIGN The possible 0.5 cm x 0.5 cm x 0.4 cm complicated cyst in the left breast is probably benign. There is no abnormality seen in the left breast to correspond with the nipple abnormality, however, clinical correlation and clinical followup are recommended. A follow-up mammogram and an ultrasound in 6 months is recommended to demonstrate stability. This exam was interpreted at Station ID: [id number]. Electronically Signed By: Mino Tate M.D. /:07/10/2023 12:13:58 letter sent: Followup Recommended Ultrasound BI-RADS: 3 Probably benign Continued Report - Page 2 of 2 Patient Name: YUNIOR ESCOBAR date: 1945 Sex: F Attending Physician: Eryn Indications: Date: 07/10/2023 12:13 At the request of: CARLY ORTA Procedure: US breast LT limited
--- NOTE | 2023-07-10 12:16 | DI.DEXA.S_ITS ---
Bone Density Report Name: YUNIOR HALL Age: 77 Sex: Female Ethnicity: White Date of : 1945 Indication: postmenopausal osteoporosis; Referring Provider: CARLY ORTA Study: Bone densitometry was performed. Exam Date: July 10, 2023 Accession number: [id number] Bone Density: Region BMD T-score Z-score Classification AP Spine(L1-L4) 0.937 -1.0 1.5 Normal Femoral Neck (Left) 0.666 -1.6 0.5 Osteopenia Total Hip (Left) 0.709 -1.9 0.0 Osteopenia Femoral Neck (Right) 0.690 -1.4 0.7 Osteopenia Total Hip (Right) 0.647 -2.4 -0.5 Osteopenia Total Hip Mean 0.678 -2.2 -0.3 Osteopenia World Health Organization criteria for BMD impression classify patients as: Normal (T-score at or above -1.0), Osteopenia (T-score between -1.0 and -2.5), or Osteoporosis (T-score at or below -2.5). 10-year Fracture Risk(1): Major Osteoporotic Fracture 12% Hip Fracture 2.8% Reported Risk Factors: [place] (), Neck BMD=0.666, BMI=24.4 (1) FRAX(R) Version 3.08. Fracture probability calculated for an untreated patient. Fracture probability may be lower if the patient has received treatment. Previous Exams: -- Region Exam Age BMD T-score BMD Change BMD Change Date g/cm2 vs Baseline vs Previous -- AP Spine (L1-L4) 07/10/2023 77 0.937 -1.0 -0.017 (-1.8%)# -0.017 (-1.8%)# 05/08/2021 75 0.953 -0.9 Total Hip(Left) 07/10/2023 77 0.709 -1.9 0.016 (2.4%)# 0.016 (2.4%)# 05/08/2021 75 0.692 -2.0 Total Hip(Right) 07/10/2023 77 0.647 -2.4 0.004 (0.7%)# 0.004 (0.7%)# 05/08/2021 75 0.643 -2.5 -- *Denotes significance at 95% confidence level, LSC for AP Spine = 0.022 g/cm2, LSC for Total Hip = 0.027 g/cm2 # Denotes dissimilar scan types or analysis methods Impression: The patient has low bone mass, based on the Right Total Hip T-score. The patient has an estimated ten-year risk of hip fracture of 2.8% and an estimated ten-year risk of major fracture of 12%, based on the WHO FRAX algorithm. No significant bone loss was observed. Discussion: BONE DENSITY IS LOW AT ONE OR MORE SKELETAL SITES. This patient's lowest T-score is low at one or more skeletal sites. It meets the World Health Organization's (WHO) criteria for ?low bone mass? (T-score between -1.0 and -2.5). The patient's 10-year risk of fracture as calculated by FRAX is less than the threshold where pharmacological therapy is recommended by the National Osteoporosis Foundation (NOF). However, all treatment decisions require clinical judgment and consideration of individual patient factors, including patient preferences, comorbidities, previous drug use, risk factors not captured in the FRAX model (e.g., frailty, falls, vitamin D deficiency, increased bone turnover, interval significant decline in bone density) and possible under or overestimation of fracture risk by FRAX. The patient should follow a healthful lifestyle (good nutrition with adequate calcium and vitamin D, and appropriate weight-bearing exercise). Follow-Up: Consider repeating this study in 2 to 3 years to reassess this patient's status, or sooner if there is some new clinical indication. Reported by: JESSICA DRIVER M.D. on 07/14/2023 1:09:00 PM.
== END ==
PROVIDERS: Family Provider Family Medicine; PCP Internal Medicine; Referring Provider Physician Assistant; Visit Provider Physician Assistant
DX: E55.9 Vitamin D deficiency, unspecified (principal); N64.4 Mastodynia; R92.2 Inconclusive mammogram; N60.02 Solitary cyst of left breast; E78.2 Mixed hyperlipidemia; D64.9 Anemia, unspecified; M85.851 Other specified disorders of bone density and structure, right thigh; Z78.0 Asymptomatic menopausal state; Z90.710 Acquired absence of both cervix and uterus; Z92.23 Personal history of estrogen therapy
CPT/HCPCS: 76642; 77066; 77080; G0279

== ENCOUNTER → 2023-07-24 07:49 | Outpatient (CLI) | payer MEDICARE, OTHER, SELFPAY ==
[2022-11-25 11:40] VITALS: BMI 24.7
[2023-07-24 08:46] LABS: Add Manual Diff / Slide Review NO; Basophils Absolute Auto 0 /uL (0-100); Eosinophils Absolute Auto 200 /uL (0-450); Eosinophils Percent Auto 5.2 % (2-4); Hematocrit 36.9 % (36-46); Hemoglobin 12.4 g/dL (12.0-16.0); Lymphocytes Absolute Auto 1000 /uL (1100-4500); Lymphocytes Percent Auto 27.3 % (25-40); Mean Corpuscular HGB Conc 33.7 % (30-36); Mean Corpuscular Volume 89.2 fL (80-100); Monocytes Absolute Auto 300 /uL (0-900); Monocytes Percent Auto 8.8 % (3-14); Neutrophils Absolute Auto 2200 /uL (1500-7000); Neutrophils Percent Auto 57.7 % (50-75); Platelet Count 186 X10^3/uL (150-400); Red Blood Cell Count 4.14 X10^6/uL (4.0-5.2); Red Cell Distribution Width 13.6 % (11.6-14.8); White Blood Cell Count 3.8 X10^3/uL (4.5-11.0)
[2023-07-24 09:43] LABS: Alanine Aminotransferase 19 IU/L (<35); Albumin 3.9 g/dL (3.5-5.0); Albumin Globulin Ratio 1.6 (1.0-2.8); Alkaline Phosphatase 68 U/L (38-126); Aspartate Aminotransferase 25 IU/L (14-36); Bilirubin Total 0.7 mg/dL (0.2-1.3); Blood Urea Nitrogen 9 mg/dL (7-17); Calcium 9.1 mg/dL (8.4-10.2); Carbon Dioxide 31 mmol/L (22-32); Chloride 104 mmol/L (98-107); Cholesterol 120 mg/dL (140-199); Estimated Glomerular Filt Rate > 60 mL/min (>60); Globulin 2.5 g/dL (1.7-4.1); Glucose 85 mg/dL (80-110); HDL Cholesterol 56 mg/dL (40-60); HEMOLYSIS < 15 (0-50); LDL Cholesterol Calculated 48 mg/dL (<100); Potassium 3.8 mmol/L (3.4-5.1); Sodium 139 mmol/L (137-145); Total Protein 6.4 g/dL (6.3-8.2); Triglycerides 79 mg/dL (35-150)
[2023-07-24 10:16] LABS: Ferritin 51 ng/mL (11-264)
== END ==
PROVIDERS: Family Provider Family Medicine; PCP Internal Medicine; Referring Provider Physician Assistant; Visit Provider Physician Assistant
DX: D64.9 Anemia, unspecified (principal); E78.2 Mixed hyperlipidemia; E55.9 Vitamin D deficiency, unspecified; M81.0 Age-related osteoporosis without current pathological fracture
CPT/HCPCS: 36415; 80053; 80061; 82306; 82728; 85025

== ENCOUNTER 2023-09-01 11:59 | Day surgery (SDC) | payer MEDICARE, OTHER, SELFPAY ==
[2023-08-19 12:23] VITALS: BMI 24.7
[2023-09-01] MEDS: LACTATED RINGERS 1,000 ML 100 ML IV (13:11)
[2023-09-01 13:16] VITALS: BP 148/84; PULSE 94; RESP 16; TEMP 36.1; O2SAT 98; BMI 24.8
--- NOTE | 2023-09-01 13:34 | PM.PREOP ---
Pre-operative Note Interval Note History & Physical reviewed/Exam performed by Physician: Yes Changes to H&P: No
[2023-09-01 14:07] VITALS: BP 110/52; PULSE 62; RESP 18; TEMP 36.2; O2SAT 98
[2023-09-01 14:12] VITALS: BP 112/57; PULSE 85; O2SAT 98
--- NOTE | 2023-09-01 14:12 | P.OP.COLON_ITS ---
Operative Date/Time/Diagnoses Date of procedure: 09/01/23 Time of procedure: 14:12 Pre-op diagnosis: Positive Cologuard test Post-op diagnosis: same Procedure & Clinicians Study performed: Colonoscopy Same procedure as scheduled: Yes Indications: 77-year-old woman with a positive Cologuard test here for diagnostic colonoscopy. Surgeon: Juan Pham Procedure Notes Procedure in detail: The history and physical was performed/updated and the patient is ASA class is 2. The procedure was discussed in detail with the patient. Potential risks complications including infection, bleeding, missed diagnosis, perforation, need for surgery, and were explained. Their questions were answered and informed consent was obtained. Patient was brought to the procedure room and placed standard monitoring equipment. The patient's vital signs were monitored continuously throughout the entire procedure. Prior to starting time-out was performed. The patient was placed in the left lateral recumbent position. Procedural sedation was admini stered by anesthesia. Examination began with a thorough inspection of the perianal area there was no evidence of fissures, fistulae, external hemorrhoids or cutaneous malignancy. The colonoscopy scope was then placed into the anal canal and was advanced to the cecum, which was identified by the ileocecal valve, the appendiceal orifice and the confluence of the taenia. The scope was then slowly withdrawn examining colon thoroughly in all directions, irrigating it of any residual stool. No masses or polyps. Tortuous colon requiring stiffening of the scope and external compression Grade 1 internal hemorrhoids The patient tolerated the procedure well. They will be discharged once criteria are met. The prep was of good/excellent quality. The withdrawl time was * minutes. Specimen(s): none sent Impression: Normal colonoscopy Post-procedure Plan for aftercare: No further colonoscopy necessary unless symptomatic Disposition: same day surgery
[2023-09-01 14:17] VITALS: BP 119/64; PULSE 82; RESP 20; TEMP 35.9; O2SAT 98
[2023-09-01 14:25] VITALS: BP 127/64; PULSE 82; RESP 17; TEMP 36.1; O2SAT 98
== END 2023-09-01 14:37 | disposition home or self-care (01) ==
PROVIDERS: Family Provider Family Medicine; PCP Internal Medicine; Referring Provider Surgery; Visit Provider Surgery
PROC: 0DJD8ZZ Inspection of Lower Intestinal Tract, Via Natural or Artificial Opening Endoscopic (ICD-10-PCS; CPT 45378; principal; 2023-09-01 13:30)
DX: Z12.11 Encounter for screening for malignant neoplasm of colon (principal); R19.5 Other fecal abnormalities; K64.0 First degree hemorrhoids
CPT/HCPCS: G0121; J2704

== ENCOUNTER → 2024-01-29 07:13 | Outpatient (CLI) | payer MEDICARE, OTHER, SELFPAY ==
[2023-08-19 12:23] VITALS: BMI 24.7
[2024-01-29 08:07] LABS: Blood Urea Nitrogen 20 mg/dL (7-17); Calcium 9.3 mg/dL (8.4-10.2); Carbon Dioxide 32 mmol/L (22-32); Chloride 107 mmol/L (98-107); Estimated Glomerular Filt Rate > 60 mL/min (>60); Glucose 97 mg/dL (80-110); HEMOLYSIS < 15 (0-50); Potassium 3.7 mmol/L (3.4-5.1); Sodium 142 mmol/L (137-145)
== END ==
PROVIDERS: Family Provider Family Medicine; PCP Internal Medicine; Referring Provider Nurse Practitioner Family; Visit Provider Nurse Practitioner Family
DX: I44.2 Atrioventricular block, complete (principal); I10 Essential (primary) hypertension
CPT/HCPCS: 36415; 80048

== ENCOUNTER → 2024-02-12 08:18 | Outpatient (CLI) | payer MEDICARE, OTHER, SELFPAY ==
[2023-08-19 12:23] VITALS: BMI 24.7
--- NOTE | 2024-02-12 | DI.MG.S_ITS ---
BILATERAL DIGITAL DIAGNOSTIC MAMMOGRAM 3D/2D: 02/12/2024 CLINICAL: Patient returns for a 6 month follow up of bilateral breasts. Comparison is made to exams dated: 07/10/2023 ultrasound, 07/10/2023 ultrasound, 07/10/2023 mammogram, 06/01/2021 mammogram, 09/08/2018 mammogram, and 08/11/2017 mammogram - [facility]. Both breasts are heterogeneously dense, which may obscure small masses (category c / 51-75% glandular tissue). No significant masses, calcifications, or other findings are seen in either breast. The cyst in the right breast previously only seen on ultrasound is more apparent on mammogram, seen in the medial aspect anterior depth on the CC view. Left mammogram is stable. IMPRESSION: INCOMPLETE: NEEDS ADDITIONAL IMAGING EVALUATION Right breast cyst more prominent compared to priors. Ultrasound is recommended for full evaluation of this area. This was performed immediately following this exam. Left mammogram is stable. Based on the Tyrer Cuzick model (a risk assessment model) the patient's lifetime risk is 3.3% and her 10 year risk is 0.0%. According to the ACR, ACS, and NCCN guidelines, an annual breast MRI exam along with mammogram is recommended if the patient's lifetime risk is 20% or greater. This exam was interpreted at Station ID: [id number]. NOTE: For mammograms, a report in lay terms will be sent to the patient. Approximately 15% of breast malignancies will not be visualized mammographically. In the management of a palpable breast mass, a negative mammogram must not discourage biopsy of a clinically suspicious lesion. Electronically Signed By: Dorothy gaviria/:02/12/2024 12:43:03 ACR BI-RADS Category 0: Incomplete [id number]
--- NOTE | 2024-02-12 08:19 | DI.US.S_ITS ---
LIMITED ULTRASOUND OF LEFT BREAST: 02/12/2024 CLINICAL: 6 month follow-up left breast. Comparison is made to exams dated: 02/12/2024 mammogram, 07/10/2023 ultrasound, 07/10/2023 ultrasound, 07/10/2023 mammogram, 06/01/2021 mammogram, and 09/08/2018 mammogram - [facility]. Color flow and real-time ultrasound of the left breast 12 o'clock region were performed. Bishop scale images of the real-time examination were reviewed. There has been interval resolution of previous complicated cyst in the left breast 12:00 2 cm from nipple. Incidentally, there is a new 5 mm oval anechoic cyst in the left breast at 12 o'clock anterior depth in the more superficial tissues, at the fat-glandular interface. Color flow imaging demonstrates that there is no vascularity present. IMPRESSION: BENIGN Resolution of previous complicated left breast cyst. The new 5 mm oval cyst in the left breast is consistent with a simple cyst and is benign. No further follow up for the left breast is needed. A 1 year screening mammogram is recommended. Findings and recommendations were conveyed to the patient at time of exam. This exam was interpreted at Station ID: [id number]. Electronically Signed By: Dorothy gaviria/:02/12/2024 12:53:37 Entry: aa - 02/15/2024 10:50:17 Ultrasound BI-RADS: 2 Benign
--- NOTE | 2024-02-12 09:33 | DI.US.S_ITS ---
LIMITED ULTRASOUND OF RIGHT BREAST: 02/12/2024 CLINICAL: 6 month follow-up of right breast. Comparison is made to exams dated: 02/12/2024 mammogram, 07/10/2023 ultrasound, 07/10/2023 mammogram, 06/01/2021 mammogram, 09/08/2018 mammogram, and 08/11/2017 mammogram - [facility]. Color flow and real-time ultrasound of the right breast lower inner quadrant and retroareolar regions were performed. Bishop scale images of the real-time examination were reviewed. There is a stable 1 cm x 1.1 cm x 1 cm round cyst in the right breast at 3 o'clock anterior depth. This round cyst is hypoechoic. Color flow imaging demonstrates that there is no vascularity present. This correlates with mammography findings. IMPRESSION: PROBABLY BENIGN The 1 cm round cyst in the right breast is stable, corresponds to the mammogram finding, consistent with a complicated cyst and is probably benign. A follow-up right ultrasound in 6 months is recommended to demonstrate stability. Findings and recommendations were conveyed to the patient at time of exam. This exam was interpreted at Station ID: [id number]. Electronically Signed By: Dorothy gaviria/:02/12/2024 12:48:13 letter sent: Followup Recommended Ultrasound BI-RADS: 3 Probably benign
== END ==
LOC: MAMMO 08:19
PROVIDERS: Family Provider Family Medicine; PCP Internal Medicine; Referring Provider Physician Assistant; Visit Provider Physician Assistant
DX: R92.8 Other abnormal and inconclusive findings on diagnostic imaging of breast (principal); N60.02 Solitary cyst of left breast; N60.01 Solitary cyst of right breast; R92.333 Mammographic heterogeneous density, bilateral breasts
CPT/HCPCS: 76642; 77066; G0279

== ENCOUNTER → 2024-08-02 10:30 | Outpatient (CLI) | payer MEDICARE, OTHER, SELFPAY ==
[2023-08-19 12:23] VITALS: BMI 24.7
--- NOTE | 2024-08-02 10:31 | DI.US.S_ITS ---
LIMITED ULTRASOUND OF RIGHT BREAST: 08/02/2024 CLINICAL: 6 month follow-up of cysts. Comparison is made to exams dated: 02/12/2024 ultrasound, 02/12/2024 mammogram, 07/10/2023 ultrasound, and 07/10/2023 mammogram - [facility]. Color flow and real-time ultrasound of the right breast 6 o'clock, and retroareolar regions were performed. Bishop scale images of the real-time examination were reviewed. There is a stable 1.1 cm x 1.1 cm x 1.1 cm round cyst in the right breast at 3 o'clock anterior depth. This round cyst is hypoechoic. Color flow imaging demonstrates that there is no vascularity present. IMPRESSION: PROBABLY BENIGN The stable 1.1 cm x 1.1 cm x 1.1 cm round cyst in the right breast is consistent with a complicated cyst and is probably benign. A follow-up mammogram and an ultrasound in 6 months is recommended to demonstrate stability. This exam was interpreted at Station ID: [id number]. Electronically Signed By: Jeremy Childs M.D. ar/:08/02/2024 21:29:39 letter sent: Followup Recommended ACR BI-RADS Category 3: Probably Benign [id number]
== END ==
PROVIDERS: Family Provider Family Medicine; PCP Internal Medicine; Referring Provider Physician Assistant; Visit Provider Physician Assistant
DX: N60.01 Solitary cyst of right breast (principal); R92.8 Other abnormal and inconclusive findings on diagnostic imaging of breast
CPT/HCPCS: 76642

== ENCOUNTER → 2024-11-22 14:59 | Outpatient (CLI) | payer MEDICARE, OTHER, SELFPAY ==
[2023-08-19 12:23] VITALS: BMI 24.7
[2024-11-22 15:42] LABS: Alanine Aminotransferase 21 IU/L (<35); Albumin 4.4 g/dL (3.5-5.0); Albumin Globulin Ratio 1.6 (1.0-2.8); Alkaline Phosphatase 83 U/L (38-126); Aspartate Aminotransferase 29 IU/L (14-36); BUN Creatinine Ratio 19.2 (6-22); Bilirubin Total 0.6 mg/dL (0.2-1.3); Blood Urea Nitrogen 14 mg/dL (7-17); Calcium 9.2 mg/dL (8.4-10.2); Carbon Dioxide 28 mmol/L (22-32); Chloride 106 mmol/L (98-107); Estimated Glomerular Filt Rate > 60 mL/min (>60); Globulin 2.7 g/dL (1.7-4.1); Glucose 100 mg/dL (80-110); HEMOLYSIS < 15 (0-50); Potassium 4.1 mmol/L (3.4-5.1); Sodium 142 mmol/L (137-145); Total Protein 7.1 g/dL (6.3-8.2)
[2024-11-22 16:13] LABS: TSH w/ Reflex to FT4 0.43 uIU/mL (0.47-4.68)
[2024-11-22 17:16] LABS: Free T4, Direct Thyroxine 1.57 ng/dL (0.78-2.19)
== END ==
PROVIDERS: Family Provider Family Medicine; PCP Internal Medicine; Referring Provider Nurse Practitioner Family; Visit Provider Nurse Practitioner Family
DX: I48.0 Paroxysmal atrial fibrillation (principal)
CPT/HCPCS: 36415; 80053; 84439; 84443

== ENCOUNTER → 2024-12-02 10:00 | Outpatient (CLI) | payer MEDICARE, OTHER, SELFPAY ==
[2023-08-19 12:23] VITALS: BMI 24.7
--- NOTE | 2024-12-02 10:04 | DI.NM.S_ITS ---
PROCEDURE: NM SHANICE PERF SPECT R&S PHARM Rest and pharmacological stress myocardial perfusion SPECT with gated imaging and ejection fraction RADIOPHARMACEUTICAL: 25.5 mCi Tc-99m tetrafosmin IV at rest and 25.8 mCi Tc-99m tetrafosmin IV at peak effect of pharmacological stress. A [id number] was performed. INDICATIONS: PAROXYSMAL AFIB TECHNIQUE: Radiopharmaceutical was injected at peak stress test, and also at rest. SPECT images were obtained. SPECT myocardial perfusion images were displayed in short axis, horizontal long axis, and vertical long axis views. Gated images were reviewed using [employer] software. COMPARISON: None. CARDIAC STRESS: A pharmacologic stress test was performed under the supervision of an attending staff, using an infusion of regadenoson 0.4 mg IV. Hemodynamic data: There is normal blood pressure and heart rate response to pharmacologic stress. Symptoms: The patient denied anginal chest pain. EKG: No diagnostic changes of ischemia; no ectopy. FINDINGS: Raw data: There is good myocardial uptake of radiotracer. No significant motion artifacts. Dusu-ok-virap ratio is 0.21 (normal is less than 0.38 for tetrafosmin tracer). Left ventricle function: Gated images demonstrate normal left ventricular wall thickening. No segmental wall motion abnormalities. No transient ischemic dilation; TID is 1.17 (normal less than 1.3). Left ventricle resting end diastolic volume is 97 mL. Left ventricle stress ejection fraction is 71%; normal range is above 45%. Myocardial perfusion: There is normal distribution of activity in the right and left ventricular myocardium. No fixed or reversible perfusion defects. IMPRESSION: Low risk study. No evidence of pharmacologic induced ischemia or scar. Normal LV size and function. Dictated by: Yseenia Jean D.O. on 12/05/2024 at 16:43 Approved by: Yesenia Jean D.O. on 12/05/2024 at 16:45
== END ==
PROVIDERS: Family Provider Family Medicine; PCP Internal Medicine; Referring Provider Nurse Practitioner Family; Visit Provider Nurse Practitioner Family
DX: I48.0 Paroxysmal atrial fibrillation (principal)
CPT/HCPCS: 78452; 93017; A9502; J2785

== ENCOUNTER → 2025-03-16 09:46 | Outpatient (CLI) | payer MEDICARE, OTHER, SELFPAY ==
[2023-08-19 12:23] VITALS: BMI 24.7
--- NOTE | 2025-03-16 09:48 | DI.US.S_ITS ---
MM diagnostic mammo BI, US breast RT limited: 03/16/2025 BI-RADS: 0 CLINICAL: 79-year old female for bilateral diagnostic mammogram and right diagnostic breast ultrasound that is a follow-up to ultrasound, right on 08/02/2024. Tyrer-Cuzick lifetime risk of 3.4%. No personal or first-degree family history of breast cancer. PRIOR EXAMS 08/02/2024, 02/12/2024, 07/10/2023, 06/01/2021, 09/08/2018, 08/11/2017, 02/05/2017, 08/08/2016, 08/04/2016, 08/03/2015, 07/27/2015. MAMMOGRAPHY TECHNIQUE: 2D and 3D (tomosynthesis) digital mammographic views obtained, with additional images as needed for full coverage. Current study was also evaluated with a Computer Aided Detection (CAD) system. ULTRASOUND TECHNIQUE Real-time oquendo scale and color doppler imaging of the area of clinical interest was performed with image documentation. TARGETED Right Breast Ultrasound: Real-time ultrasound exam was performed focused to area of clinical and/or imaging concern. DENSITY C. The breasts are heterogeneously dense, which may obscure small masses. MAMMOGRAPHY FINDINGS Right: Lower Inner at 3:30, Anterior depth: Stable asymmetry demonstrates partially obscured, smooth margins. This corresponds to a cyst on ultrasound. No significant changes. Left: Upper Outer at 2:00, Middle depth: There is an asymmetry present. Additional imaging evaluation needed. This has become mildly more prominent compared to previous. ULTRASOUND FINDINGS Right: Inner at 3:00, Retroareolar, measuring 1 x 1 x 1 cm: There is a simple anechoic cyst showing posterior acoustic enhancement that is unchanged in size and appearance. Doppler shows no vascularity. Previously seen internal echoes are no longer present. IMPRESSION: Right * No evidence of malignancy with benign findings. Left (Asymmetry): Upper Outer at 2:00, Middle depth * Incomplete - Needs additional imaging evaluation. RECOMMENDATIONS Right * Annual screening mammography in one year. Left: Upper Outer at 2:00, Middle depth * Further evaluation with diagnostic ultrasound to be performed today. Left * Left ultrasound will be reported separately. OVERALL ASSESSMENT CATEGORY BI-RADS-0: Incomplete - Need Additional Imaging Evaluation. ELECTRONICALLY SIGNED: Dorothy Piper M.D. on 03/16/2025 at 12:14:41 PM PT Interpreting Station ID: [id number]
--- NOTE | 2025-03-16 11:06 | DI.US.S_ITS ---
US breast LT limited: 03/16/2025. BI-RADS: 3 CLINICAL: 79-year old female for left diagnostic breast ultrasound. Tyrer-Cuzick lifetime risk of 2.3%. No personal or first-degree family history of breast cancer. PRIOR EXAMS: Comparison is made with relevant prior imaging in PACS including the most recent: 08/02/2024, 02/12/2024, 07/10/2023, 06/01/2021, 09/08/2018, 08/11/2017, 02/05/2017, 08/08/2016, 08/04/2016, 08/03/2015, 07/27/2015. ULTRASOUND TECHNIQUE: Real-time oquendo scale and color doppler imaging of the area of clinical interest was performed with image documentation. ULTRASOUND FINDINGS Left: Outer at 3:00: No sonographic correlate to the more prominent mammographic asymmetry. IMPRESSION: Left: Outer at 3:00 * Probably Benign. Left * Mammogram finding is probably normal superimposed fibroglandular tissue. RECOMMENDATIONS Left * Six month followup with diagnostic mammography and diagnostic ultrasound. Ultrasound to be performed only if needed. COMMENTS: Findings and recommendations were conveyed to the patient during today's evaluation. OVERALL ASSESSMENT CATEGORY BI-RADS-3: Probably Benign. ELECTRONICALLY SIGNED: Dorothy Piper M.D. on 03/16/2025 at 12:17:30 PM PT Interpreting Station ID: [id number]
== END ==
PROVIDERS: Family Provider Family Medicine; PCP Internal Medicine; Referring Provider Internal Medicine; Visit Provider Internal Medicine
DX: R92.8 Other abnormal and inconclusive findings on diagnostic imaging of breast (principal); N60.01 Solitary cyst of right breast; N64.89 Other specified disorders of breast; R92.333 Mammographic heterogeneous density, bilateral breasts
CPT/HCPCS: 76642; 77066; G0279

== ENCOUNTER → 2025-06-06 08:22 | Outpatient (CLI) | payer MEDICARE, OTHER, SELFPAY ==
[2023-08-19 12:23] VITALS: BMI 24.7
[2025-06-06 09:29] LABS: Alanine Aminotransferase 17 IU/L (<35); Albumin 4.3 g/dL (3.5-5.0); Albumin Globulin Ratio 1.7 (1.0-2.8); Alkaline Phosphatase 80 U/L (38-126); Blood Urea Nitrogen 14 mg/dL (7-17); Calcium 9.3 mg/dL (8.4-10.2); Carbon Dioxide 27 mmol/L (22-32); Chloride 103 mmol/L (98-107); Estimated Glomerular Filt Rate > 60 mL/min (>60); Globulin 2.6 g/dL (1.7-4.1); Glucose 93 mg/dL (70-99); HEMOLYSIS < 15 (0-50); Potassium 3.8 mmol/L (3.4-5.1); Sodium 139 mmol/L (137-145); Total Protein 6.9 g/dL (6.3-8.2)
[2025-06-06 09:57] LABS: TSH w/ Reflex to FT4 0.33 uIU/mL (0.47-4.68)
[2025-06-06 14:17] LABS: Free T4, Direct Thyroxine 1.79 ng/dL (0.78-2.19)
== END ==
PROVIDERS: Family Provider Family Medicine; PCP Internal Medicine; Referring Provider Internal Medicine Cardiovascular Disease; Visit Provider Internal Medicine Cardiovascular Disease
DX: I48.0 Paroxysmal atrial fibrillation (principal)
CPT/HCPCS: 36415; 80053; 84439; 84443

== ENCOUNTER → 2025-10-02 08:23 | Outpatient (CLI) | payer MEDICARE, OTHER, SELFPAY ==
[2023-08-19 12:23] VITALS: BMI 24.7
--- NOTE | 2025-10-02 08:30 | DI.US.S_ITS ---
US breast LT limited, MM diagnostic mammo unilat LT: 10/02/2025 BI-RADS: 3 CLINICAL: 79-year old female for left diagnostic mammogram and left diagnostic breast ultrasound. The patient presents for a follow-up. Tyrer-Cuzick lifetime risk of 3.4%. No personal or first-degree family history of breast cancer. PRIOR EXAMS 03/16/2025, 08/02/2024, 02/12/2024, 07/10/2023, 06/01/2021, 09/08/2018, 08/11/2017, 02/05/2017, 08/08/2016, 08/04/2016. MAMMOGRAPHY TECHNIQUE: 2D and 3D (tomosynthesis) digital mammographic views obtained, with additional images as needed for full coverage. Current study was also evaluated with a Computer Aided Detection (CAD) system. ULTRASOUND TECHNIQUE TARGETED Left Breast Ultrasound: Real-time ultrasound exam was performed focused to area of clinical and/or imaging concern. Real-time oquendo scale and color doppler imaging of the area of clinical interest was performed with image documentation. DENSITY Left: C. The breast is heterogeneously dense, which may obscure small masses. MAMMOGRAPHY FINDINGS Left (finding-1): Upper Outer Quadrant, Anterior depth: There is a questionable distortion on mammogram. This finding is less conspicuous on the spot compression views and may represent superimposition. Left: Outer at 3:00: Correlating with prior imaging concern, there is a stable focal asymmetry present. Upon further review, this finding appears similar compared to prior mammograms dating back to 08/11/2017. ULTRASOUND FINDINGS Left: Outer at 3:00, 6 cm from nipple, measuring 0.4 x 0.3 x 0.4 cm: There is a simple anechoic cyst showing posterior acoustic enhancement. Doppler shows no vascularity. This is an incidental finding. Left (finding-1): Upper Outer at 1:00, 4 cm from nipple: There is no sonographic abnormality to account for imaging concern on mammography. IMPRESSION: Left: Upper Outer Quadrant, Anterior depth * Probably Benign. RECOMMENDATIONS Left: Upper Outer Quadrant, Anterior depth * Six month followup with diagnostic mammography. When the patient returns for short-term unilateral followup, a mammogram for the contralateral breast will also be due. COMMENTS: Findings and recommendations were conveyed to the patient during today's evaluation. OVERALL ASSESSMENT CATEGORY BI-RADS-3: Probably Benign. ELECTRONICALLY SIGNED: Leah Dodge M.D. on 10/02/2025 at 11:34:15 AM PT Interpreting Station ID: [id number]
== END ==
LOC: MAMMO 08:26
PROVIDERS: PCP Internal Medicine; Referring Provider Internal Medicine; Visit Provider Internal Medicine
DX: R92.8 Other abnormal and inconclusive findings on diagnostic imaging of breast (principal); N60.02 Solitary cyst of left breast; R92.332 Mammographic heterogeneous density, left breast
CPT/HCPCS: 76642; 77065; G0279